=== PATIENT | female | born 1970 | race African-American/Black ===

== ENCOUNTER 2021-11-10 18:10 | Inpatient (IN) | payer OTHER, SELFPAY ==
[2021-11-10] VITALS (9 sets, daily range): BP systolic 130–158; BP diastolic 76–103; PULSE 91–103; RESP 24–28; TEMP 37.2–38; O2SAT 78–97; BMI 57.1; BMI 55.3
--- NOTE | ~2021-11-10 | CT_ITS ---
EXAMINATION: CT ANGIOGRAM OF THE CHEST WITH AND WITHOUT CONTRAST (CT PULMONARY ANGIOGRAM FOR PE) CLINICAL INFORMATION: Reason for Exam COVID + hypoxia pain r/o PE COMPARISON: No similar priors. TECHNIQUE: Prior to contrast administration, noncontrast localization images were obtained. Subsequently, multidetector volumetric imaging was performed from the thoracic inlet to below the diaphragms following the administration of 100 mL Omnipaque 350 intravenous contrast. No contrast reaction reported Sagittal, coronal, and MIP oblique sagittal reformatted images were obtained on the CT workstation, uploaded to PACS, and reviewed. This CT examination was performed using dose optimization techniques as appropriate, variously including the following: *Automated exposure control *Adjustment of mA and/or kV according to patient size (this includes techniques or standardized protocols for targeted exams where dose is matched to indication/reason for exam; i.e. extremities or head) *Use of iterative reconstruction technique Total exam dose-length product 545 mGy-cm FINDINGS: QUALITY OF STUDY/CONTRAST BOLUS: Suboptimal. PULMONARY ARTERIES: Evaluation of segmental and subsegmental branches is essentially nondiagnostic due to noise generated by patient body habitus, motion and overlying airspace opacities. No central pulmonary emboli. THORACIC AORTA: No aneurysm or dissection. LUNG: Extensive multifocal airspace opacities limiting evaluation of pulmonary nodules or underlying masses. The central airways are patent. PLEURA: No significant pleural effusion. No pneumothorax. MEDIASTINUM: Normal heart size. No pericardial effusion. No evidence of septal bowing or right heart strain. Mediastinal and hilar lymphadenopathy, for example a right lower pretracheal lymph node measuring 1 cm in short axis (5:18). Asymmetrically enlarged and heterogeneous right lobe of the thyroid. CHEST WALL/AXILLA: A few prominent bilateral axillary lymph nodes are indeterminate. There is no lymphadenopathy by size criteria. OSSEOUS STRUCTURES: No acute or suspicious osseous abnormality. Thoracic spondylosis. UPPER ABDOMEN: Unremarkable. No reflux of contrast into the hepatic veins to suggest elevated right heart pressures. CT/CT angio chest PE protocol IMPRESSION: No central pulmonary emboli. As above, evaluation of segmental and subsegmental branches is suboptimal. Extensive multifocal airspace opacities concerning for a severe atypical infection, such as COVID pneumonia. Mediastinal and hilar lymphadenopathy is likely reactive in nature. Enlarged heterogeneous right lobe of the thyroid for which correlation with a nonemergent thyroid ultrasound is recommended. VTE: negative
--- NOTE | ~2021-11-10 | XR_ITS ---
EXAMINATION: XR CHEST CLINICAL INFORMATION: Dyspnea. COMPARISON: None TECHNIQUE: Frontal portable view of the chest was obtained. 7:42 PM FINDINGS: Extensive multifocal bilateral airspace disease. No large pleural effusion. No pneumothorax. Heart size normal. XR/XR chest 1V IMPRESSION: Extensive multifocal bilateral airspace disease. Infectious/inflammatory versus cardiogenic, pulmonary edema, etiology.
--- NOTE | 2021-11-10 18:14 | ECG_ITS ---
Test Reason : DYSPENA Blood Pressure : / mmHG Vent. Rate : 099 BPM Atrial Rate : 099 BPM P-R Int : 172 ms QRS Dur : 102 ms QT Int : 348 ms P-R-T Axes : 043 011 063 degrees QTc Int : 446 ms Normal sinus rhythm Minimal voltage criteria for LVH, may be normal variant ( Mclean product ) Borderline ECG No previous ECGs available Referred By: Vicenta Carbone Electronically Signed By:MISTY WATSON
[2021-11-10] MEDS: Albuterol Sulfate (0.083%) 2.5 MG/3 ML VIAL.NEB 5 MG INHALE (18:28)
--- NOTE | 2021-11-10 18:34 | ED_ITS ---
HPI - SOB/Dyspnea General Chief Complaint: Dyspnea Stated Complaint: sob Time Seen by Provider: 11/10/21 18:11 Source: patient and EMS Mode of arrival: EMS Limitations: no limitations History of Present Illness HPI Narrative: 51 yo female hx of obesity, asthma, DM, not vaccinated notes she was exposed to COVID by her son noted symptoms started 10/31 into 11/01 she tested positive at home 11/02 she was doing okay until her breathing became more labored this Wednesday. She went to get Mab today and they found her in resp distress with saturations at 78%. Given neb with EMS good response up to 94% on 4L NC. Patient desaturates down to upper 80s off O2. She had productive yellow blood tinged sputum on arrival in ED - first bout seeing blood just now. Patient has not been getting any treatments at home. MD elicited complaint: shortness of breath, cough and asthma attack Pertinent past history: asthma and diabetes Onset (ago): day(s) (4) Context: recent illness (COVID + 11/02 home test unvaccinated) Timing: progressively worsening Severity: severe Exacerbating factors: exertion and coughing Relieving factors: oxygen, rest and bronchodilators Known history of: asthma Associated symptoms: fever, cough, wheezing, sputum production, hemoptysis and chest congestion Treatment prior to arrival: oxygen and bronchodilator Related Data Home Medications Medication Instructions Recorded Confirmed albuterol sulfate 90 1 inh INHALATION Q4H PRN 11/10/21 11/10/21 mcg/actuation aerosol inhaler (Ventolin HFA) cholecalciferol (vitamin D3) 50 1 cap PO DAILY 11/10/21 11/10/21 mcg (2,000 unit) capsule ibuprofen 800 mg tablet 1 tab PO TID PRN 11/10/21 11/10/21 metformin 1,000 mg tablet 1 tab PO BID 11/10/21 11/10/21 Allergies Allergy/AdvReac Type Severity Reaction Status Date / Time No Known Allergies Allergy Verified 11/10/21 18:13 Review of Systems Verdana 4l Review of Systems: Verdana 4d Verdana 4d Constitutional : pos Fever, pos Chills ENT/Mouth : No Hoarseness, No sore throat, No Rhinorrhea Eyes: No Redness, No Discharge, No Vision Changes Cardiovascular : pos Chest Pain, positive SOB, positive Dyspnea on Exertion, no Edema RespiratoryRespiratory : positive Cough, pos Sputum, positive Wheezing, Gastrointestinal : pos Nausea, No Vomiting, No Diarrhea, No abdominal Pain Genitourinary : No Dysuria, No Hematuria Musculoskeletal : No joint pain, pos Myalgias Skin : No rash Neuro : No Weakness, No Numbness, No Headache Psych : No anxiety, depression Heme/Lymph: No Bruising, No Bleeding Endocrine : No Polyuria, No Polydipsia All other systems reviewed and are negative PMFSH Past Medical History Attestation statement: The following information was validated with the patient. Medical History (Updated 11/10/21 @ 20:05 by Vicenta Carbone DO) Asthma Diabetes Lymphedema Obesity PRISCILLA (obstructive sleep apnea) Social History Social History (Updated 11/10/21 @ 18:35 by Vicenta Carbone DO) Patient Tobacco Use Status: Former Tobacco user Advance Directives: No Physical Exam Verdana 4l Vital Signs: Verdana 4d Verdana 4d Vital Signs: Verdana 4d Verdana 4Bd Last Vital Signs Verdana 4d [employer] New 4d [employer] New 4d Temp 100.4 F 11/10/21 18:23 [employer] New 4d Pulse 103 H 11/10/21 19:19 [employer] New 4d Resp 28 H 11/10/21 19:19 BP 147/76 H 11/10/21 18:23 Pulse Ox 93 11/10/21 19:30 Oxygen Flow Rate 4 11/10/21 18:23 BMI result Body Mass Index 57.1 Appearance: Alert. Oriented X3. Mild acute distress. Eyes: Pupils equal, round and reactive to light. ENT: Pharynx normal. Coughed up yellow blood tinged sputum - has never happened until now Neck: short neck. Neck supple. CVS: Normal heart rate and rhythm. Pulses normal. Respiratory: Mild respiratory distress - retractions and tachypnea. Breath sounds diffuse wheezing insp and exp bases diminished throughout Abdomen: Soft and nontender. Obese Skin: Skin warm and dry. Normal skin color. Normal skin turgor. Extremities: chronic LLE edema states appears typical to her. No calf ttp Neuro: Oriented X 3. No motor deficit. No sensory deficit. Course Course Course Narrative: 88% post treatment no response to 6L NC will place on Zaidi 93% on 7L Zaidi will add on vancomycin given purulent bloody sputum, CTA pending ICU aware though currently not vented or on NIPPV stable sats on [place] ICU will admit overnight given her PRISCILLA use of NIPPV overnight and likelihood of decompensation - Dr. Saucedo and Nikita BUTLER aware MDM - SOB/Dyspnea MDM Narrative Medical decision making narrative: 51 yo female hx of obesity, asthma, DM, not vaccinated notes she was exposed to COVID by her son noted symptoms started 10/31 into 11/01 she tested positive at home 11/02 she was doing okay until her breathing became more labored this Wednesday. Went to [facility] center today found to be in hypoxic to 78% given neb en rou te with good effect - at this time will need labs, cultures, CXR likely CTA for PE. IV dexamethasone, albuterol 5mg. Patient will need admission for further management and workup. Lab Data Result diagrams: 11/10/21 19:07 11/10/21 19:07 Labs: Lab Results 11/10/21 11/10/21 11/10/21 Range/Units 18:14 19:07 19:07 WBC 7.3 (4.8-10.8) X10*3/uL RBC 4.36 (4.20-5.50) X10*6/uL Hgb 12.7 (12.0-16.0) g/dl Hct 38.9 (37.0-47.0) % MCV 89.2 (80.0-98.0) fL MCH 29.1 (27.0-33.0) pg MCHC 32.6 (31.0-35.0) g/dl RDW 14.6 (11.0-16.0) % Plt Count 263 (160-400) X10*3/uL MPV 9.6 (9.4-12.3) fL Immature Gran % (Auto) 0.4 (0.0-0.4) % Neut % (Auto) 74.8 H (45-73) % Lymph % (Auto) 21.8 (20-40) % [place] % (Auto) 2.5 (2-11) % Eos % (Auto) 0.1 (0-4) % Baso % (Auto) 0.4 (0-2) % Lymph # (Auto) 1.6 (1.2-4.9) X10*3/uL [place] # (Auto) 0.2 (0.1-1.2) X10*3/uL Eos # (Auto) 0.0 (0.0-0.4) X10*3/uL Baso # (Auto) 0.0 (0.0-0.2) X10*3/uL Abs Immat Gran (auto) 0.03 (0.00-0.03) X10*3/uL Absolute Neuts (auto) 5.5 (2.0-8.3) x10*3/uL Absolute Nucleated RBC 0.000 (0.0-0.012) X10*3/uL Nucleated RBC % (auto) 0.0 (0.0-0.2) /100WBC Smear Tech's Comments VERIFIED PT (9.9-13.0) SEC INR (0.9-1.1) D-Dimer High Sensitivty NG/ML VBG pH 7.44 H (7.32-7.43) VBG pCO2 37 mmHg VBG pO2 48 mmHg VBG HCO3 25 (22-26) mmol/L VBG O2 Saturation 75.0 % VBG Base Excess 2.1 mmol/L Sodium 142 (135-145) mmol/L Potassium 3.7 (3.3-5.1) mmol/L Chloride 104 (96-108) mmol/L Carbon Dioxide 27 (22-29) mmol/L Anion Gap 15 (12-20) BUN 7 L (9-16) mg/dL Creatinine 0.81 (0.5-1.4) mg/dL Estim Creat Clear Calc 119.5 Estimated GFR > 60 Random Glucose 237 H (60-115) mg/dL Lactic Acid (0.5-2.0) mmol/L Calcium 8.7 (8.4-10.2) mg/dL Magnesium 2.0 (1.6-2.6) mg/dL Ferritin (10-250) ng/mL Total Bilirubin 0.4 (0.0-1.0) mg/dL Direct Bilirubin 0.2 (0.0-0.5) mg/dL AST 55 H (5-31) U/L ALT 41 H (0-31) U/L Alkaline Phosphatase 95 (39-117) U/L Lactate Dehydrogenase 455 H (122-220) U/L Total Creatine Kinase 192 H (26-140) U/L Troponin I High Sens (<3.5-17.0) ng/L C-Reactive Protein 20.09 H (< or = 0.50) mg/dL Total Protein 7.0 (6.5-8.0) g/dL Albumin 3.9 (3.5-5.0) g/dL Procalcitonin ng/mL 11/10/21 11/10/21 11/10/21 Range/Units 19:07 19:07 19:07 WBC (4.8-10.8) X10*3/uL RBC (4.20-5.50) X10*6/uL Hgb (12.0-16.0) g/dl Hct (37.0-47.0) % MCV (80.0-98.0) fL MCH (27.0-33.0) pg MCHC (31.0-35.0) g/dl RDW (11.0-16.0) % Plt Count (160-400) X10*3/uL MPV (9.4-12.3) fL Immature Gran % (Auto) (0.0-0.4) % Neut % (Auto) (45-73) % Lymph % (Auto) (20-40) % [place] % (Auto) (2-11) % Eos % (Auto) (0-4) % Baso % (Auto) (0-2) % Lymph # (Auto) (1.2-4.9) X10*3/uL [place] # (Auto) (0.1-1.2) X10*3/uL Eos # (Auto) (0.0-0.4) X10*3/uL Baso # (Auto) (0.0-0.2) X10*3/uL Abs Immat Gran (auto) (0.00-0.03) X10*3/uL Absolute Neuts (auto) (2.0-8.3) x10*3/uL Absolute Nucleated RBC (0.0-0.012) X10*3/uL Nucleated RBC % (auto) (0.0-0.2) /100WBC Smear Tech's Comments PT 13.7 H (9.9-13.0) SEC INR 1.2 H (0.9-1.1) D-Dimer High Sensitivty NG/ML VBG pH (7.32-7.43) VBG pCO2 mmHg VBG pO2 mmHg VBG HCO3 (22-26) mmol/L VBG O2 Saturation % VBG Base Excess mmol/L Sodium (135-145) mmol/L Potassium (3.3-5.1) mmol/L Chloride (96-108) mmol/L Carbon Dioxide (22-29) mmol/L Anion Gap (12-20) BUN (9-16) mg/dL Creatinine (0.5-1.4) mg/dL Estim Creat Clear Calc Estimated GFR Random Glucose (60-115) mg/dL Lactic Acid 1.5 (0.5-2.0) mmol/L Calcium (8.4-10.2) mg/dL Magnesium (1.6-2.6) mg/dL Ferritin 355 H (10-250) ng/mL Total Bilirubin (0.0-1.0) mg/dL Direct Bilirubin (0.0-0.5) mg/dL AST (5-31) U/L ALT (0-31) U/L Alkaline Phosphatase (39-117) U/L Lactate Dehydrogenase (122-220) U/L Total Creatine Kinase (26-140) U/L Troponin I High Sens (<3.5-17.0) ng/L C-Reactive Protein (< or = 0.50) mg/dL Total Protein (6.5-8.0) g/dL Albumin (3.5-5.0) g/dL Procalcitonin ng/mL 11/10/21 11/10/21 11/10/21 Range/Units 19:07 19:07 19:08 WBC (4.8-10.8) X10*3/uL RBC (4.20-5.50) X10*6/uL Hgb (12.0-16.0) g/dl Hct (37.0-47.0) % MCV (80.0-98.0) fL MCH (27.0-33.0) pg MCHC (31.0-35.0) g/dl RDW (11.0-16.0) % Plt Count (160-400) X10*3/uL MPV (9.4-12.3) fL Immature Gran % (Auto) (0.0-0.4) % Neut % (Auto) (45-73) % Lymph % (Auto) (20-40) % [place] % (Auto) (2-11) % Eos % (Auto) (0-4) % Baso % (Auto) (0-2) % Lymph # (Auto) (1.2-4.9) X10*3/uL [place] # (Auto) (0.1-1.2) X10*3/uL Eos # (Auto) (0.0-0.4) X10*3/uL Baso # (Auto) (0.0-0.2) X10*3/uL Abs Immat Gran (auto) (0.00-0.03) X10*3/uL Absolute Neuts (auto) (2.0-8.3) x10*3/uL Absolute Nucleated RBC (0.0-0.012) X10*3/uL Nucleated RBC % (auto) (0.0-0.2) /100WBC Smear Tech's Comments PT (9.9-13.0) SEC INR (0.9-1.1) D-Dimer High Sensitivty 506 NG/ML VBG pH (7.32-7.43) VBG pCO2 mmHg VBG pO2 mmHg VBG HCO3 (22-26) mmol/L VBG O2 Saturation % VBG Base Excess mmol/L Sodium (135-145) mmol/L Potassium (3.3-5.1) mmol/L Chloride (96-108) mmol/L Carbon Dioxide (22-29) mmol/L Anion Gap (12-20) BUN (9-16) mg/dL Creatinine (0.5-1.4) mg/dL Estim Creat Clear Calc Estimated GFR Random Glucose (60-115) mg/dL Lactic Acid (0.5-2.0) mmol/L Calcium (8.4-10.2) mg/dL Magnesium (1.6-2.6) mg/dL Ferritin (10-250) ng/mL Total Bilirubin (0.0-1.0) mg/dL Direct Bilirubin (0.0-0.5) mg/dL AST (5-31) U/L ALT (0-31) U/L Alkaline Phosphatase (39-117) U/L Lactate Dehydrogenase (122-220) U/L Total Creatine Kinase (26-140) U/L Troponin I High Sens 4.9 (<3.5-17.0) ng/L C-Reactive Protein (< or = 0.50) mg/dL Total Protein (6.5-8.0) g/dL Albumin (3.5-5.0) g/dL Procalcitonin 0.13 ng/mL ECG Data Attestation: I personally reviewed and interpreted this ECG as follows: ECG interpretation date: 11/10/21 ECG interpretation time: 19:38 Interpretation: Rate: 99 Rhythm: NSR [place]: normal Normal P waves. Normal CLAIRE. Normal QRS complex. ST T wave : no [place], normal qTC: normal prior studies: no acute ischemia The study has been interpreted contemporaneously by me. . Critical Care Time Critical Care Time Critical Care Time: Yes Total Critical Care Time: 60 Attestation: hypoxia correction, albuterol 5mg, reassessments, admission to hospital I attest to this time spent taking care of the patient Discharge Plan Discharge Clinical Impression: Pneumonia due to 2019-nCoV, Hypoxia Respiratory failure, acute Qualifiers: Respiratory failure complication: hypoxia Qualified Code(s): J96.01 - Acute respiratory failure with hypoxia Patient Disposition: Admitted As Inpatient
[2021-11-10 19:15] LABS: Basophils Percent Auto 0.4 % (0-2); Eosinophils Percent Auto 0.1 % (0-4); Hematocrit 38.9 % (37.0-47.0); Hemoglobin 12.7 g/dl (12.0-16.0); Imm Gran Abs Auto 0.03 X10*3/uL (0.00-0.03); Imm Gran Pct Auto 0.4 % (0.0-0.4); Lymphocytes Absolute Auto 1.6 X10*3/uL (1.2-4.9); Lymphocytes Percent Auto 21.8 % (20-40); MANUAL DIFF FLAG SCAN; Mean Corpuscular HGB Conc 32.6 g/dl (31.0-35.0); Mean Corpuscular Hemoglobin 29.1 pg (27.0-33.0); Mean Corpuscular Volume 89.2 fL (80.0-98.0); Mean Platelet Volume 9.6 fL (9.4-12.3); Monocytes Absolute Auto 0.2 X10*3/uL (0.1-1.2); Monocytes Percent Auto 2.5 % (2-11); Neutrophils Absolute Auto 5.5 x10*3/uL (2.0-8.3); Neutrophils Percent Auto 74.8 % (45-73); Platelet Count 263 X10*3/uL (160-400); Red Blood Count 4.36 X10*6/uL (4.20-5.50); Red Cell Distribution Width 14.6 % (11.0-16.0); SCAN SMEAR FLAG 1; White Blood Count 7.3 X10*3/uL (4.8-10.8)
[2021-11-10] MEDS: Acetaminophen 325 MG TABLET 650 MG PO (19:15)
[2021-11-10] MEDS: dexAMETHasone sod phosphate 4 MG/ML VIAL 6 MG IVPUSH (19:16)
[2021-11-10 19:20] LABS: INTERNATIONAL NORM RATIO 1.2 (0.9-1.1); Prothrombin Time 13.7 SEC (9.9-13.0)
[2021-11-10 19:28] LABS: Venous Blood Gas Refer to POC result
[2021-11-10 19:35] LABS: Lactic Acid 1.5 mmol/L (0.5-2.0)
[2021-11-10 19:39] LABS: Alanine Aminotransferase 41 U/L (0-31); Albumin Level 3.9 g/dL (3.5-5.0); Alkaline Phosphatase 95 U/L (39-117); Anion Gap 15 (12-20); Aspartate Amino Transferase 55 U/L (5-31); Bilirubin Direct 0.2 mg/dL (0.0-0.5); Bilirubin Total 0.4 mg/dL (0.0-1.0); Blood Urea Nitrogen 7 mg/dL (9-16); C Reactive Protein 20.09 mg/dL (< or = 0.50); Calcium 8.7 mg/dL (8.4-10.2); Carbon Dioxide 27 mmol/L (22-29); Chloride 104 mmol/L (96-108); Creatinine Clr Calc Pharmacy 119.5; Estimated Glomerular Filt Rate > 60; Glucose Random 237 mg/dL (60-115); Lactate Dehydrogenase 455 U/L (122-220); Potassium 3.7 mmol/L (3.3-5.1); Sodium 142 mmol/L (135-145)
[2021-11-10 19:40] LABS: D Dimer High Sensitivity 506 NG/ML
[2021-11-10 19:42] LABS: Troponin-I High Sensitivity 4.9 ng/L (<3.5-17.0)
[2021-11-10 19:55] LABS: VBG Base Excess 2.1 mmol/L; VBG pCO2 37 mmHg; VBG pH 7.44 (7.32-7.43); VBG pO2 48 mmHg
[2021-11-10 19:56] LABS: Procalcitonin 0.13 ng/mL
[2021-11-10 19:56] LABS: VBG HCO3 25 mmol/L (22-26)
--- NOTE | 2021-11-10 20:03 | PHA.MEDREC ---
Pharmacy Consult ? Medication Reconciliation Pharmacy has completed the medication reconciliation.
[2021-11-10 20:19] LABS: Ferritin 355 ng/mL (10-250)
[2021-11-10 20:24] LABS: SLIDE REVIEW VERIFIED
[2021-11-10] MEDS: iohexoL 350 MG/ML 100 ML INFUS..BTL IV (20:56)
[2021-11-10 21:07] LABS: B Type Natriuretic Peptide 10 pg/mL (<100)
[2021-11-10] MEDS: cefTRIAXone sodium 1 GM in 0.9 % Sodium Chloride 50 ML IV (21:08)
[2021-11-10] MEDS: Azithromycin 500 MG in 0.9 % Sodium Chloride 250 ML 125 MG IV (21:11)
--- NOTE | 2021-11-10 21:11 | PM.CCHP ---
History of Present Illness Date of Service: 11/10/21 Attending physician on admission: Jennifer Saucedo Chief Complaint: Acute Hypoxic Respiratory Failure Patient is a 51-year-old female with a past medical history of morbid obesity, DM2, asthma, chronic LLE lymphedema, not vaccinated for Covid, who states she was exposed to COVID by her son after he traveled to [place]. She states her symptoms started on October 31, she test positive at home in November 02. She states she uses BiPAP at night at home and has been using it for the last 10 days. She states she became more sick 3 days ago, noting fevers with a T-max of 102.6 degrees, some nausea and vomiting and an increase in shortness of breath beyond her baseline. Earlier today, she went to get a monoclonal antibody infusion and they found her in respiratory distress with O2 sat of 78%. EMS gave her a nebulizer treatment with fair success, she arrived in the ED satting at 94% on 4 L nasal cannula. During my exam, the patient was on 7 L Zaidi NC satting in the low 90's, breathing easily, able to answer my questions, asking for water and a blanket, not in distress. Vitals in the emergency department were notable for a temp of 100.4 degrees F, heart rate 103, respiratory rate 28, blood pressure 147/76. Labs in the ED were remarkable for glucose 237, AST 55, ALT 41, LDH 455, CK 192, CRP 20.09, ferritin 355, D-dimer 506, procalcitonin 0.13; VBG 7.44/37/48/25/75/2.1 While in the ED patient was given albuterol 5 mg, IV dexamethasone, 500 mg azithromycin, 1 g ceftriaxone and Tylenol. CTA results: CT/CT angio chest PE protocol IMPRESSION: No central pulmonary emboli. As above, evaluation of segmental and subsegmental branches is suboptimal. ? Extensive multifocal airspace opacities concerning for a severe atypical infection, such as COVID pneumonia. ? Mediastinal and hilar lymphadenopathy is likely reactive in nature. ? Enlarged heterogeneous right lobe of the thyroid for which correlation with a nonemergent thyroid ultrasound is recommended. ? VTE: negative Review of Systems Review of Systems: Yes all other systems are reviewed and are negative PMFSH Past Medical History Medical History Asthma Diabetes Lymphedema Obesity PRISCILLA (obstructive sleep apnea) Social History Social History Household Members: Children Housing: Apartment Do you presently have visiting nurse or other home services: Yes Patient Tobacco Use Status: Former Tobacco user e-Cigarette/Vaping Use: Former Use Use of substances other than those prescribed or required for medical reasons: No Have you been hit, kicked, punched, or otherwise hurt by someone within the past year? If so, by whom?: No Do you feel safe in your current relationship?: No Current Relationship Is there a partner from a previous relationship who is making you feel unsafe now?: No Are you made to feel afraid or neglected: No Advance Directives: No Do you have thoughts of harming others: None Do you have a plan to hurt others: No Plan Recently lost weight without trying: No Nutrition Risks: No Nutritional Risk Patient : No : No Poor oral hygiene: No Meds Allergies Allergy/AdvReac Type Severity Reaction Status Date / Time No Known Allergies Allergy Verified 11/10/21 18:13 Active Medications: Current Medications Albuterol Sulfate (Albuterol Sulfate (0.083%) 2.5 Mg/3 Ml Vial.Neb) 2.5 mg INHALE Q4H PRN PRN Reason: sob Albuterol/Ipratropium (Albuterol/Iprat 2.5/0.5mg 3 Ml Ampul.Neb) 3 ml INHALE Q2H PRN PRN Reason: sob Dexamethasone Sodium Phosphate (Dexamethasone Sod Phosphate 4 Mg/Ml Vial) 6 mg IVPUSH ONCE BINA Stop: 11/19/21 21:16 Dextrose (Dextrose 50 % 25 Gm/50 Ml Syringe) 25 gm IVPUSH Q30M PRN PRN Reason: Nursing Actions in Insulin Infusion Protocol Fluvoxamine Maleate (Fluvoxamine Maleate 50 Mg Tablet) 100 mg PO Q12H BINA Heparin Sodium (Porcine) (Heparin Sodium,Porcine 5,000 Unit/Ml Vial) 5,000 unit SUBCUT Q12H BINA Azithromycin 500 mg/ Sodium (Chloride) 250 mls @ 125 mls/hr IV ONCE ONE Stop: 11/10/21 21:59 Vancomycin HCl 1,500 mg/ (Sodium Chloride) 500 mls @ 333.333 mls/hr IV ONCE ONE Stop: 11/10/21 21:48 Insulin Human Regular (Myxredlin) 100 unit in 100 mls @ 0 mls/hr IVCONT .Q0M [facility]; Protocol Vancomycin HCl 750 mg/ Sodium (Chloride) 265 mls @ 265 mls/hr IV Q24H [facility] Pharmacy Consult (Consult Rx Perform Med Rec) 1 each MISCELLANE ONCE PRN PRN Reason: Consult order Pharmacy Consult (Consult Rx Vancomycin Dosing) 1 each MISCELLANE DAILY PRN PRN Reason: Consult order Home Medications Medication Instructions Recorded Confirmed Last Taken Type albuterol sulfate 90 mcg/actuation 1 inh INHALATION Q4H PRN 11/10/21 11/10/21 Unknown History aerosol inhaler (Ventolin HFA) cholecalciferol (vitamin D3) 50 1 cap PO DAILY 11/10/21 11/10/21 Unknown History mcg (2,000 unit) capsule ibuprofen 800 mg tablet 1 tab PO TID PRN 11/10/21 11/10/21 Unknown History metformin 1,000 mg tablet 1 tab PO BID 11/10/21 11/10/21 Unknown History Physical Exam Vital Signs: Vital Signs: Last Vital Signs Temp 100.4 F 11/10/21 18:23 Pulse 93 11/10/21 21:07 Resp 28 H 11/10/21 21:07 BP 147/76 H 11/10/21 18:23 Pulse Ox 93 11/10/21 21:07 Oxygen Flow Rate 4 11/10/21 18:23 BMI result Body Mass Index 57.1 Const: General: cooperative, comfortable, no acute distress, alert, awake and tired appearing Nutritional Appearance: obese morbidly obese Orientation/consciousness: patient oriented x3 HENMT: Head: Yes normal to inspection, Yes No palpable skull fracture present, Yes normocephalic and Yes atraumatic Ears: hearing grossly normal bilaterally General nose exam: Normal external nose present Face and sinus: Yes normal facial exam Eyes: General: appearance normal, both eyes and all related structures Pupils: Equal, round and reactive pupils present Neck: Neck: Yes normal visual inspection, Yes full ROM, Yes trachea midline and Yes supple Resp: Effort & Inspection: normal respiratory effort, able to speak in complete sentences and Actively coughing Auscultation: wheezes expiratory wheezes, inspiratory wheezes, scattered wheezes and throughout and diminished lung sounds diffuse Cardio: Jugular venous distension: no JVD Rate: regular rate Rhythm: regular rhythm Heart sounds: normal S1 and S2 GI: Inspection: Yes obesity Palpation (GI): Soft to palpation and nontender Skin: General skin exam: no rashes or lesions noted Neuro: General: patient oriented x3 Cranial nerves: Yes Equal, round and reactive pupils present Results Labs CBC and Chem 7: 11/10/21 19:07 11/10/21 19:07 Labs: Laboratory Results - last 24 hr 11/10/21 11/10/21 11/10/21 18:14 19:07 19:07 MCV 89.2 MCH 29.1 MCHC 32.6 RDW 14.6 Plt Count 263 MPV 9.6 Immature Gran % (Auto) 0.4 Neut % (Auto) 74.8 H Lymph % (Auto) 21.8 [place] % (Auto) 2.5 Eos % (Auto) 0.1 Baso % (Auto) 0.4 Lymph # (Auto) 1.6 [place] # (Auto) 0.2 Eos # (Auto) 0.0 Baso # (Auto) 0.0 Abs Immat Gran (auto) 0.03 Absolute Neuts (auto) 5.5 Absolute Nucleated RBC 0.000 Nucleated RBC % (auto) 0.0 Smear Tech's Comments VERIFIED PT INR D-Dimer High Sensitivty VBG pH 7.44 H VBG pCO2 37 VBG pO2 48 VBG HCO3 25 VBG O2 Saturation 75.0 VBG Base Excess 2.1 Anion Gap 15 Estim Creat Clear Calc 119.5 Estimated GFR > 60 Random Glucose 237 H Lactic Acid Calcium 8.7 Magnesium 2.0 Ferritin Total Bilirubin 0.4 Direct Bilirubin 0.2 AST 55 H ALT 41 H Alkaline Phosphatase 95 Lactate Dehydrogenase 455 H Total Creatine Kinase 192 H Troponin I High Sens C-Reactive Protein 20.09 H B-Natriuretic Peptide Total Protein 7.0 Albumin 3.9 Procalcitonin 11/10/21 11/10/21 11/10/21 19:07 19:07 19:07 MCV MCH MCHC RDW Plt Count MPV Immature Gran % (Auto) Neut % (Auto) Lymph % (Auto) [place] % (Auto) Eos % (Auto) Baso % (Auto) Lymph # (Auto) [place] # (Auto) Eos # (Auto) Baso # (Auto) Abs Immat Gran (auto) Absolute Neuts (auto) Absolute Nucleated RBC Nucleated RBC % (auto) Smear Tech's Comments PT 13.7 H INR 1.2 H D-Dimer High Sensitivty VBG pH VBG pCO2 VBG pO2 VBG HCO3 VBG O2 Saturation VBG Base Excess Anion Gap Estim Creat Clear Calc Estimated GFR Random Glucose Lactic Acid 1.5 Calcium Magnesium Ferritin 355 H Total Bilirubin Direct Bilirubin AST ALT Alkaline Phosphatase Lactate Dehydrogenase Total Creatine Kinase Troponin I High Sens C-Reactive Protein B-Natriuretic Peptide Total Protein Albumin Procalcitonin 11/10/21 11/10/21 11/10/21 19:07 19:07 19:08 MCV MCH MCHC RDW Plt Count MPV Immature Gran % (Auto) Neut % (Auto) Lymph % (Auto) [place] % (Auto) Eos % (Auto) Baso % (Auto) Lymph # (Auto) [place] # (Auto) Eos # (Auto) Baso # (Auto) Abs Immat Gran (auto) Absolute Neuts (auto) Absolute Nucleated RBC Nucleated RBC % (auto) Smear Tech's Comments PT INR D-Dimer High Sensitivty 506 VBG pH VBG pCO2 VBG pO2 VBG HCO3 VBG O2 Saturation VBG Base Excess Anion Gap Estim Creat Clear Calc Estimated GFR Random Glucose Lactic Acid Calcium Magnesium Ferritin Total Bilirubin Direct Bilirubin AST ALT Alkaline Phosphatase Lactate Dehydrogenase Total Creatine Kinase Troponin I High Sens 4.9 C-Reactive Protein B-Natriuretic Peptide 10 Total Protein Albumin Procalcitonin 0.13 ECG Attestation: I personally reviewed and interpreted this ECG as follows: ECG interpretation date: 11/10/21 ECG interpretation time: 22:14 Prior ECG tracings: not available for review Interpretation: NSR 99BPM, no ST or T wave changes. Imaging Radiologist's Impressions: Impressions Chest X-Ray 11/10/21 19:48 IMPRESSION: Extensive multifocal bilateral airspace disease. Infectious/inflammatory versus cardiogenic, pulmonary edema, etiology. Assessment and Plan (1) Pneumonia due to 2019-nCoV: Status: Acute ID consult appreciated for possible use of Remdesivir and/or baricintinib pt is on day 10 of symptoms but due to her medical history, could be helpful. Will place on BiPap overnight and monitor pt status and VBG's. Decadron ordered. discussed with patient to prone and lay on the right side and left side as much as possible (2) PRISCILLA treated with BiPAP: Status: Acute (3) Obesity, morbid, BMI 50 or higher: Status: Acute (4) Acute respiratory failure with hypoxia: Status: Acute discussed with patient to prone and lay on the right side and left side as much as possible (5) Diabetes type 2, uncontrolled: Status: Acute QIDACHS insulin and POC's Plan see above. Admission, assessment and plan discussed with Dr Saucedo.
--- NOTE | 2021-11-10 21:29 | PHA.PROG ---
Admission Date/Time: November 10, 2021 20:59 Indication: other possible resp Weight in k.2 kg Adjusted body weight in K.3 [place] body weight in K.7 Obesity Dosing Indication % IBW: Serum Creatinine - Last 168 Hours 11/10/21 19:07 Creatinine 0.81 Estimated CrCl and GFR - Last 168 Hours 11/10/21 19:07 Estim Creat Clear Calc 119.5 Estimated GFR > 60 Vancomycin Loading Dose: 2000 Current Vancomycin Dosing Regimen: 1gm q12 Vancomycin Monitoring using AUC goal of 400 - 600 range with trough as surrogate marker: auc 457; trough 12.7 Date and Time for next Vancomycin Level to be drawn: 11/11 @2100 Pharmacist Comments on Vancomycin Plan: trough after 2 doses to assess safety. using obese model Vancomycin dosing will take advantage of [employer] as a clinical decision support tool that uses Bayesian modeling to calculate individual patient's pharmacokinetic parameters and forecast the patient's drug concentration time course with the target goal AUC 24 range of 400 - 600 mg/L/hr.
[2021-11-10 22:16] LABS: Glucose, Whole Blood 225 mg/dL (60-115)
--- NOTE | 2021-11-10 22:24 | PC.NURSE ---
call placed to pharmacy for Luvox for pt
[2021-11-10] MEDS: Heparin Sodium,Porcine 5,000 UNIT/ML VIAL 5000 UNIT SUBCUT (22:33)
[2021-11-11] VITALS (18 sets, daily range): BP systolic 128–162; BP diastolic 71–98; PULSE 75–94; RESP 16–37; TEMP 36.2–37.4; O2SAT 82–98; BMI 55.5
[2021-11-11 00:15] LABS: Glucose, Whole Blood 255 mg/dL (60-115)
[2021-11-11] MEDS: Insulin Lispro 100 UNIT/ML 3 ML VIAL SUBCUT ×5 (01:04→21:40)
[2021-11-11 04:53] LABS: VBG Base Excess 1.8 mmol/L; VBG HCO3 26 mmol/L (22-26); VBG pCO2 41 mmHg; VBG pH 7.41 (7.32-7.43); VBG pO2 53 mmHg
[2021-11-11 05:20] LABS: Hematocrit 36.1 % (37.0-47.0); Hemoglobin 11.7 g/dl (12.0-16.0); Mean Corpuscular HGB Conc 32.4 g/dl (31.0-35.0); Mean Corpuscular Volume 89.4 fL (80.0-98.0); Mean Platelet Volume 9.8 fL (9.4-12.3); Platelet Count 274 X10*3/uL (160-400); Red Blood Count 4.04 X10*6/uL (4.20-5.50); Red Cell Distribution Width 14.6 % (11.0-16.0); Venous Blood Gas Refer to POC result; White Blood Count 5.9 X10*3/uL (4.8-10.8)
[2021-11-11 05:36] LABS: D Dimer High Sensitivity 488 NG/ML
[2021-11-11 05:41] LABS: Alanine Aminotransferase 41 U/L (0-31); Albumin Level 3.6 g/dL (3.5-5.0); Alkaline Phosphatase 93 U/L (39-117); Anion Gap 13 (12-20); Aspartate Amino Transferase 57 U/L (5-31); Bilirubin Direct 0.2 mg/dL (0.0-0.5); Bilirubin Total 0.3 mg/dL (0.0-1.0); Blood Urea Nitrogen 6 mg/dL (9-16); C Reactive Protein 21.07 mg/dL (< or = 0.50); Calcium 8.4 mg/dL (8.4-10.2); Carbon Dioxide 27 mmol/L (22-29); Chloride 105 mmol/L (96-108); Creatinine Clr Calc Pharmacy 123.3; Estimated Glomerular Filt Rate > 60; Glucose Random 254 mg/dL (60-115); Magnesium 2.1 mg/dL (1.6-2.6); Phosphorus 2.9 mg/dL (2.7-4.5); Potassium 4.1 mmol/L (3.3-5.1); Sodium 141 mmol/L (135-145); Total Protein 6.5 g/dL (6.5-8.0)
[2021-11-11 05:55] LABS: Band Neutrophils Percent 5 % (3-5); Lymphocytes Absolute Manual 0.5 X10*3/uL (1.2-4.9); Lymphocytes Percent Manual 8 % (20-40); Monocytes Absolute Manual 0.1 X10*3/uL (0.1-1.2); Monocytes Percent Manual 1 % (2-11)
[2021-11-11 05:56] LABS: Neutrophils Absolute Manual 5.3 X10*3/uL (2.0-8.3); Neutrophils Percent Manual 85 % (45-73)
[2021-11-11 05:57] LABS: Metamyelocytes Absolute 0.1 X10*3/uL; Metamyelocytes Percent 1 %
[2021-11-11 06:02] LABS: Platelet Estimate NORMAL (NORMAL); Platelet Morphology Comment NORMAL; RBC Morphology NORMAL
[2021-11-11 06:06] LABS: Ferritin 311 ng/mL (10-250)
[2021-11-11 07:26] LABS: Glucose, Whole Blood 221 mg/dL (60-115)
[2021-11-11] MEDS: dexAMETHasone sod phosphate 4 MG/ML VIAL 6 MG IVPUSH (08:48)
[2021-11-11] MEDS: Heparin Sodium,Porcine 5,000 UNIT/ML VIAL 5000 UNIT SUBCUT ×2 (08:48→21:40)
[2021-11-11] MEDS: fluvoxaMINE Maleate 50 MG TABLET 100 MG PO (08:49)
--- NOTE | 2021-11-11 10:53 | P.PNCC_ITS ---
Subjective Subjective Date of Service: 11/11/21 Interval History: 51-year-old type 2 diabetic morbidly obese female with history of asthma and obstructive sleep apnea on nocturnal BiPAP at home is under vaccinated had significant exposure developed low-grade fever and shortness of breath symptomatic since the making this now about 11 days and tested positive on the for COVID and and admitted through the emergency room with positive CT scan for mean of scattered bilateral ground-glass infiltrates including significant subpleural infiltrates who had a low room air oxygen saturation of 78% was rejected obviously for monoclonal antibodies sent to the emergency room admitted and now receiving Decadron and also empirically fluvoxamine and at this point is on nasal high-flow at 55 L and intermittent use of non-rebreather but respiratory rate is in the low teens comfortable no significant respiratory work week chose to bring her because of risk factors to the ICU last night and apparently has remained stable on her nocturnal BiPAP settings of 10/5 and currently is on a diet using the above noninvasive therapy and at this point conceivably be observed in the intermediate care unit and of course in if need be for for intubation can be brought back down but thus far appear stable Critical Care Time (minutes): 35 Physical Exam Verdana 4l Vital Signs: Verdana 4d Verdana 4d Vital Signs: Verdana 4d Verdana 4Bd Last Vital Signs Verdana 4d Tuber Helper New 4d Tuber Helper New 4d Temp 97.2 F 11/11/21 08:00 Tuber Helper New 4d Pulse 82 11/11/21 08:00 Tuber Helper New 4d Resp 22 H 11/11/21 08:23 BP 146/89 H 11/11/21 08:00 Pulse Ox 98 11/11/21 08:00 Oxygen Flow Rate 15 11/10/21 20:59 BMI result Body Mass Index 55.5 vital signs stable in normal sinus rhythm heart rate 84 oxygen sat 95% blood pressure 126/80 awake alert and nonfocal neurologically cardiovascular good bilateral carotid upstrokes no neck vein distension no gallop s no significant accessory muscle use and no diaphragmatic effort abdomen benign Objective Data Labs CBC & Chem 7: 11/11/21 04:45 11/11/21 04:45 Labs: Laboratory Results - last 24 hr 11/10/21 11/10/21 11/10/21 18:14 19:07 19:07 WBC 7.3 RBC 4.36 Hgb 12.7 Hct 38.9 MCV 89.2 MCH 29.1 MCHC 32.6 RDW 14.6 Plt Count 263 MPV 9.6 Immature Gran % (Auto) 0.4 Neut % (Auto) 74.8 H Lymph % (Auto) 21.8 Bartholomew % (Auto) 2.5 Eos % (Auto) 0.1 Baso % (Auto) 0.4 Lymph # (Auto) 1.6 Bartholomew # (Auto) 0.2 Eos # (Auto) 0.0 Baso # (Auto) 0.0 Abs Immat Gran (auto) 0.03 Absolute Neuts (auto) 5.5 Absolute Nucleated RBC 0.000 Nucleated RBC % (auto) 0.0 Neutrophils % (Manual) Band Neutrophils % Lymphocytes % (Manual) Monocytes % (Manual) Metamyelocytes % Abs Neuts (Manual) Lymphocytes # (Manual) Monocytes # (Manual) Metamyelocytes # Platelet Estimate Plt Morphology Comment RBC Morphology Smear Tech's Comments VERIFIED PT INR D-Dimer High Sensitivty VBG pH 7.44 H VBG pCO2 37 VBG pO2 48 VBG HCO3 25 VBG O2 Saturation 75.0 VBG Base Excess 2.1 Sodium 142 Potassium 3.7 Chloride 104 Carbon Dioxide 27 Anion Gap 15 BUN 7 L Creatinine 0.81 Estim Creat Clear Calc 119.5 Estimated GFR > 60 POC Glucose Random Glucose 237 H Lactic Acid Calcium 8.7 Phosphorus Magnesium 2.0 Ferritin Total Bilirubin 0.4 Direct Bilirubin 0.2 AST 55 H ALT 41 H Alkaline Phosphatase 95 Lactate Dehydrogenase 455 H Total Creatine Kinase 192 H Troponin I High Sens C-Reactive Protein 20.09 H B-Natriuretic Peptide Total Protein 7.0 Albumin 3.9 Procalcitonin 11/10/21 11/10/21 11/10/21 19:07 19:07 19:07 WBC RBC Hgb Hct MCV MCH MCHC RDW Plt Count MPV Immature Gran % (Auto) Neut % (Auto) Lymph % (Auto) Bartholomew % (Auto) Eos % (Auto) Baso % (Auto) Lymph # (Auto) Bartholomew # (Auto) Eos # (Auto) Baso # (Auto) Abs Immat Gran (auto) Absolute Neuts (auto) Absolute Nucleated RBC Nucleated RBC % (auto) Neutrophils % (Manual) Band Neutrophils % Lymphocytes % (Manual) Monocytes % (Manual) Metamyelocytes % Abs Neuts (Manual) Lymphocytes # (Manual) Monocytes # (Manual) Metamyelocytes # Platelet Estimate Plt Morphology Comment RBC Morphology Smear Tech's Comments PT 13.7 H INR 1.2 H D-Dimer High Sensitivty VBG pH VBG pCO2 VBG pO2 VBG HCO3 VBG O2 Saturation VBG Base Excess Sodium Potassium Chloride Carbon Dioxide Anion Gap BUN Creatinine Estim Creat Clear Calc Estimated GFR POC Glucose Random Glucose Lactic Acid 1.5 Calcium Phosphorus Magnesium Ferritin 355 H Total Bilirubin Direct Bilirubin AST ALT Alkaline Phosphatase Lactate Dehydrogenase Total Creatine Kinase Troponin I High Sens C-Reactive Protein B-Natriuretic Peptide Total Protein Albumin Procalcitonin 11/10/21 11/10/21 11/10/21 19:07 19:07 19:08 WBC RBC Hgb Hct MCV MCH MCHC RDW Plt Count MPV Immature Gran % (Auto) Neut % (Auto) Lymph % (Auto) Bartholomew % (Auto) Eos % (Auto) Baso % (Auto) Lymph # (Auto) Bartholomew # (Auto) Eos # (Auto) Baso # (Auto) Abs Immat Gran (auto) Absolute Neuts (auto) Absolute Nucleated RBC Nucleated RBC % (auto) Neutrophils % (Manual) Band Neutrophils % Lymphocytes % (Manual) Monocytes % (Manual) Metamyelocytes % Abs Neuts (Manual) Lymphocytes # (Manual) Monocytes # (Manual) Metamyelocytes # Platelet Estimate Plt Morphology Comment RBC Morphology Smear Tech's Comments PT INR D-Dimer High Sensitivty 506 VBG pH VBG pCO2 VBG pO2 VBG HCO3 VBG O2 Saturation VBG Base Excess Sodium Potassium Chloride Carbon Dioxide Anion Gap BUN Creatinine Estim Creat Clear Calc Estimated GFR POC Glucose Random Glucose Lactic Acid Calcium Phosphorus Magnesium Ferritin Total Bilirubin Direct Bilirubin AST ALT Alkaline Phosphatase Lactate Dehydrogenase Total Creatine Kinase Troponin I High Sens 4.9 C-Reactive Protein B-Natriuretic Peptide 10 Total Protein Albumin Procalcitonin 0.13 11/10/21 11/11/21 11/11/21 21:46 00:08 04:45 WBC 5.9 RBC 4.04 L Hgb 11.7 L Hct 36.1 L MCV 89.4 MCH 29.0 MCHC 32.4 RDW 14.6 Plt Count 274 MPV 9.8 Immature Gran % (Auto) Cancelled Neut % (Auto) Cancelled Lymph % (Auto) Cancelled Bartholomew % (Auto) Cancelled Eos % (Auto) Cancelled Baso % (Auto) Cancelled Lymph # (Auto) Cancelled Bartholomew # (Auto) Cancelled Eos # (Auto) Cancelled Baso # (Auto) Cancelled Abs Immat Gran (auto) Cancelled Absolute Neuts (auto) Cancelled Absolute Nucleated RBC 0.000 Nucleated RBC % (auto) 0.0 Neutrophils % (Manual) 85 H Band Neutrophils % 5 Lymphocytes % (Manual) 8 L Monocytes % (Manual) 1 L Metamyelocytes % 1 Abs Neuts (Manual) 5.3 Lymphocytes # (Manual) 0.5 L Monocytes # (Manual) 0.1 Metamyelocytes # 0.1 Platelet Estimate NORMAL Plt Morphology Comment NORMAL RBC Morphology NORMAL Smear Tech's Comments PT INR D-Dimer High Sensitivty VBG pH VBG pCO2 VBG pO2 VBG HCO3 VBG O2 Saturation VBG Base Excess Sodium Potassium Chloride Carbon Dioxide Anion Gap BUN Creatinine Estim Creat Clear Calc Estimated GFR POC Glucose 225 H 255 H Random Glucose Lactic Acid Calcium Phosphorus Magnesium Ferritin Total Bilirubin Direct Bilirubin AST ALT Alkaline Phosphatase Lactate Dehydrogenase Total Creatine Kinase Troponin I High Sens C-Reactive Protein B-Natriuretic Peptide Total Protein Albumin Procalcitonin 11/11/21 11/11/21 11/11/21 04:45 04:45 04:46 WBC RBC Hgb Hct MCV MCH MCHC RDW Plt Count MPV Immature Gran % (Auto) Neut % (Auto) Lymph % (Auto) Bartholomew % (Auto) Eos % (Auto) Baso % (Auto) Lymph # (Auto) Bartholomew # (Auto) Eos # (Auto) Baso # (Auto) Abs Immat Gran (auto) Absolute Neuts (auto) Absolute Nucleated RBC Nucleated RBC % (auto) Neutrophils % (Manual) Band Neutrophils % Lymphocytes % (Manual) Monocytes % (Manual) Metamyelocytes % Abs Neuts (Manual) Lymphocytes # (Manual) Monocytes # (Manual) Metamyelocytes # Platelet Estimate Plt Morphology Comment RBC Morphology Smear Tech's Comments PT INR D-Dimer High Sensitivty 488 VBG pH 7.41 VBG pCO2 41 VBG pO2 53 VBG HCO3 26 VBG O2 Saturation 79.0 VBG Base Excess 1.8 Sodium 141 Potassium 4.1 Chloride 105 Carbon Dioxide 27 Anion Gap 13 BUN 6 L Creatinine 0.77 Estim Creat Clear Calc 123.3 Estimated GFR > 60 POC Glucose Random Glucose 254 H Lactic Acid Calcium 8.4 Phosphorus 2.9 Magnesium 2.1 Ferritin 311 H Total Bilirubin 0.3 Direct Bilirubin 0.2 AST 57 H ALT 41 H Alkaline Phosphatase 93 Lactate Dehydrogenase Total Creatine Kinase 191 H Troponin I High Sens C-Reactive Protein 21.07 H B-Natriuretic Peptide Total Protein 6.5 Albumin 3.6 Procalcitonin 11/11/21 07:20 WBC RBC Hgb Hct MCV MCH MCHC RDW Plt Count MPV Immature Gran % (Auto) Neut % (Auto) Lymph % (Auto) Bartholomew % (Auto) Eos % (Auto) Baso % (Auto) Lymph # (Auto) Bartholomew # (Auto) Eos # (Auto) Baso # (Auto) Abs Immat Gran (auto) Absolute Neuts (auto) Absolute Nucleated RBC Nucleated RBC % (auto) Neutrophils % (Manual) Band Neutrophils % Lymphocytes % (Manual) Monocytes % (Manual) Metamyelocytes % Abs Neuts (Manual) Lymphocytes # (Manual) Monocytes # (Manual) Metamyelocytes # Platelet Estimate Plt Morphology Comment RBC Morphology Smear Tech's Comments PT INR D-Dimer High Sensitivty VBG pH VBG pCO2 VBG pO2 VBG HCO3 VBG O2 Saturation VBG Base Excess Sodium Potassium Chloride Carbon Dioxide Anion Gap BUN Creatinine Estim Creat Clear Calc Estimated GFR POC Glucose 221 H Random Glucose Lactic Acid Calcium Phosphorus Magnesium Ferritin Total Bilirubin Direct Bilirubin AST ALT Alkaline Phosphatase Lactate Dehydrogenase Total Creatine Kinase Troponin I High Sens C-Reactive Protein B-Natriuretic Peptide Total Protein Albumin Procalcitonin Progress Note: A&P Assessment and plan (1) Diabetes type 2, uncontrolled: Status: Acute (2) Acute respiratory failure with hypoxia: Status: Acute (3) Obesity, morbid, BMI 50 or higher: Status: Acute (4) PRISCILLA treated with BiPAP: Status: Acute (5) Pneumonia due to 2019-nCoV: Status: Acute (6) Hypoxia: Status: Acute (7) Respiratory failure, acute: Status: Acute Plan plan is to observe on IMCU and on the above noninvasive therapy including nocturnal BiPAP as is her habit at home and we can introduce diet and insulin coverage Quality Stroke Does the patient have a stroke diagnosis?: No VTE Prior VTE?: No VTE Risk Level:: Medical - low VTE Device Contraindication: N/A - Device Ordered VTE Drug Contraindication: N/A - Med Ordered
[2021-11-11 11:23] LABS: Glucose, Whole Blood 248 mg/dL (60-115)
--- NOTE | 2021-11-11 14:42 | P.CNID_ITS ---
History of Present Illness Data of Consult Service Date: 11/11/21 Requesting physician: Vibha Shelton Primary Care Provider: Unknown Physician HPI Reason for consult: shortness of breath She presents with shortness of breath and cough with symptoms starting 10/31 and positive COVID test on 11/02/2021. She has diabetes and is not vaccinated. She is 93% on seven liters Zaidi She has had some yellow red sputum. Review of Systems Verdana 4l Review of Systems: Yes all other systems are reviewed and Verdana 4d are negative [facility] Past Medical History Medical History Asthma Diabetes Lymphedema Obesity PRISCILLA (obstructive sleep apnea) Family History Family history: reviewed and not pertinent Social History Social History Household Members: Children Housing: Apartment Do you presently have visiting nurse or other home services: Yes Patient Tobacco Use Status: Former Tobacco user e-Cigarette/Vaping Use: Former Use Use of substances other than those prescribed or required for medical reasons: No Currently Displaying Signs/Symptoms of Drug Intoxication Withdrawal: No Have you been hit, kicked, punched, or otherwise hurt by someone within the past year? If so, by whom?: No Do you feel safe in your current relationship?: No Current Relationship Is there a partner from a previous relationship who is making you feel unsafe now?: No Are you made to feel afraid or neglected: No Advance Directives: No Do you have thoughts of harming others: None Do you have a plan to hurt others: No Plan Recently lost weight without trying: No Nutrition Risks: No Nutritional Risk Patient : No : No Poor oral hygiene: No Meds Allergies Allergy/AdvReac Type Severity Reaction Status Date / Time No Known Allergies Allergy Verified 11/10/21 18:13 Active Medications: Current Medications Albuterol Sulfate (Albuterol Sulfate (0.083%) 2.5 Mg/3 Ml Vial.Neb) 2.5 mg INHALE Q4H PRN PRN Reason: sob Albuterol/Ipratropium (Albuterol/Iprat 2.5/0.5mg 3 Ml Ampul.Neb) 3 ml INHALE Q2H PRN PRN Reason: sob Dexamethasone Sodium Phosphate (Dexamethasone Sod Phosphate 4 Mg/Ml Vial) 6 mg IVPUSH DAILY [facility] Stop: 11/20/21 09:01 Last Admin: 11/11/21 08:48 Dose: 6 mg Documented by: Dextrose (Dextrose 50 % 25 Gm/50 Ml Syringe) 25 gm IVPUSH Q30M PRN PRN Reason: Nursing Actions in Insulin Infusion Protocol Fluvoxamine Maleate (Fluvoxamine Maleate 50 Mg Tablet) 100 mg PO Q12H [facility] Last Admin: 11/11/21 08:49 Dose: 100 mg Documented by: Heparin Sodium (Porcine) (Heparin Sodium,Porcine 5,000 Unit/Ml Vial) 5,000 unit SUBCUT Q12H [facility] Last Admin: 11/11/21 08:48 Dose: 5,000 unit Documented by: Insulin Human Lispro (Insulin Lispro 100 Unit/Ml 3 Ml Vial) 0 unit SUBCUT QIDACHS [facility]; Protocol Last Admin: 11/11/21 11:46 Dose: 4 unit Documented by: Pharmacy Consult (Consult Rx Perform Med Rec) 1 each MISCELLANE ONCE PRN PRN Reason: Consult order Pharmacy Consult (Consult Rx Vancomycin Dosing) 1 each MISCELLANE DAILY PRN PRN Reason: Consult order Home Medications Medication Instructions Recorded Confirmed Last Taken Type albuterol sulfate 1 inh INHALATION 11/10/21 11/10/21 Unknown History 90 mcg/actuation Q4H PRN aerosol inhaler (Ventolin HFA) cholecalciferol 1 cap PO DAILY 11/10/21 11/10/21 Unknown History (vitamin D3) 50 mcg (2,000 unit) capsule ibuprofen 800 mg 1 tab PO TID PRN 11/10/21 11/10/21 Unknown History tablet metformin 1,000 1 tab PO BID 11/10/21 11/10/21 Unknown History mg tablet Physical Exam Verdana 4l Vital Signs: Verdana 4d Verdana 4d Vital Signs: Verdana 4d Verdana 4Bd Last Vital Signs Verdana 4d Wage Analyst New 4d Wage Analyst New 4d Temp 98.2 F 11/11/21 12:00 Wage Analyst New 4d Pulse 84 11/11/21 12:00 Wage Analyst New 4d Resp 16 11/11/21 12:00 BP 143/88 H 11/11/21 12:00 Pulse Ox 93 11/11/21 12:00 Oxygen Flow Rate 15 11/10/21 20:59 BMI result Body Mass Index 55.5 Const: General: cooperative Eyes: General: appearance normal, both eyes and all related structures Pupils: Equal, round and reactive pupils present Resp: Effort & Inspection: tachypneic Cardio: Rate: regular rate Rhythm: regular rhythm GI: Palpation (GI): Soft to palpation and nontender Neuro: Cranial nerves: Yes Equal, round and reactive pupils present Extrem: General: Yes normal to inspection Results Labs CBC & Chem 7: 11/11/21 04:45 11/11/21 04:45 Labs: Short CBC 11/10/21 11/11/21 Range/Units 19:07 04:45 WBC 7.3 5.9 (4.8-10.8) X10*3/uL Hgb 12.7 11.7 L (12.0-16.0) g/dl Hct 38.9 36.1 L (37.0-47.0) % Plt Count 263 274 (160-400) X10*3/uL BMP 11/10/21 11/11/21 19:07 04:45 Sodium 142 141 Potassium 3.7 4.1 Chloride 104 105 Carbon Dioxide 27 27 BUN 7 L 6 L Creatinine 0.81 0.77 Calcium 8.7 8.4 Cardiac Enzymes 11/10/21 11/11/21 Range/Units 19:07 04:45 Total Creatine Kinase 192 H 191 H (26-140) U/L Liver Function 11/10/21 11/11/21 Range/Units 19:07 04:45 Total Bilirubin 0.4 0.3 (0.0-1.0) mg/dL Direct Bilirubin 0.2 0.2 (0.0-0.5) mg/dL AST 55 H 57 H (5-31) U/L ALT 41 H 41 H (0-31) U/L Alkaline Phosphatase 95 93 (39-117) U/L Albumin 3.9 3.6 (3.5-5.0) g/dL Assessment and Plan (1) Hypoxia: Status: Acute (2) Pneumonia due to 2019-nCoV: Status: Acute She has COVID symptoms of twelve days duration. She has passed window of Remdesivir usefulness after seven days She is candidate for Dexamethasone and oxygen No signs of VTE reported or opportunistic infections at this time (3) PRISCILLA treated with BiPAP: Status: Acute (4) Obesity, morbid, BMI 50 or higher: Status: Acute Plan Continue oxygen and steroids No Remdesivir Baricitinib if requires high flow Prognosis is guarded with very high BMI There is no antibiotic indication at this time
--- NOTE | 2021-11-11 15:00 | P.CNID_ITS ---
History of Present Illness Data of Consult Service Date: 11/11/21 Primary Care Provider: Unknown Physician [facility] Past Medical History Medical History Asthma Diabetes Lymphedema Obesity PRISCILLA (obstructive sleep apnea) Family History Family history: reviewed and not pertinent Social History Social History Household Members: Children Housing: Apartment Do you presently have visiting nurse or other home services: Yes Patient Tobacco Use Status: Former Tobacco user e-Cigarette/Vaping Use: Former Use service: No Meds Allergies Allergy/AdvReac Type Severity Reaction Status Date / Time No Known Allergies Allergy Verified 11/10/21 18:13 Active Medications: Current Medications Albuterol Sulfate (Albuterol Sulfate (0.083%) 2.5 Mg/3 Ml Vial.Neb) 2.5 mg INHALE Q4H PRN PRN Reason: sob Albuterol/Ipratropium (Albuterol/Iprat 2.5/0.5mg 3 Ml Ampul.Neb) 3 ml INHALE Q2H PRN PRN Reason: sob Dexamethasone Sodium Phosphate (Dexamethasone Sod Phosphate 4 Mg/Ml Vial) 6 mg IVPUSH DAILY [facility] Stop: 11/20/21 09:01 Last Admin: 11/11/21 08:48 Dose: 6 mg Documented by: Dextrose (Dextrose 50 % 25 Gm/50 Ml Syringe) 25 gm IVPUSH Q30M PRN PRN Reason: Nursing Actions in Insulin Infusion Protocol Fluvoxamine Maleate (Fluvoxamine Maleate 50 Mg Tablet) 100 mg PO Q12H [facility] Last Admin: 11/11/21 08:49 Dose: 100 mg Documented by: Heparin Sodium (Porcine) (Heparin Sodium,Porcine 5,000 Unit/Ml Vial) 5,000 unit SUBCUT Q12H [facility] Last Admin: 11/11/21 08:48 Dose: 5,000 unit Documented by: Insulin Human Lispro (Insulin Lispro 100 Unit/Ml 3 Ml Vial) 0 unit SUBCUT QIDACHS [facility]; Protocol Last Admin: 11/11/21 11:46 Dose: 4 unit Documented by: Pharmacy Consult (Consult Rx Perform Med Rec) 1 each MISCELLANE ONCE PRN PRN Reason: Consult order Pharmacy Consult (Consult Rx Vancomycin Dosing) 1 each MISCELLANE DAILY PRN PRN Reason: Consult order Home Medications Medication Instructions Recorded Confirmed Last Taken Type albuterol sulfate 90 mcg/actuation 1 inh INHALATION Q4H PRN 11/10/21 11/10/21 Unknown History aerosol inhaler (Ventolin HFA) cholecalciferol (vitamin D3) 50 1 cap PO DAILY 11/10/21 11/10/21 Unknown History mcg (2,000 unit) capsule ibuprofen 800 mg tablet 1 tab PO TID PRN 11/10/21 11/10/21 Unknown History metformin 1,000 mg tablet 1 tab PO BID 11/10/21 11/10/21 Unknown History Physical Exam Vital Signs: Vital Signs: Last Vital Signs Temp 98.2 F 11/11/21 12:00 Pulse 84 11/11/21 12:00 Resp 16 11/11/21 12:00 BP 143/88 H 11/11/21 12:00 Pulse Ox 93 11/11/21 12:00 Oxygen Flow Rate 15 11/10/21 20:59 BMI result Body Mass Index 55.5 Results Labs CBC & Chem 7: 11/21/21 06:52 11/21/21 06:52 Labs: Short CBC 11/10/21 11/11/21 Range/Units 19:07 04:45 WBC 7.3 5.9 (4.8-10.8) X10*3/uL Hgb 12.7 11.7 L (12.0-16.0) g/dl Hct 38.9 36.1 L (37.0-47.0) % Plt Count 263 274 (160-400) X10*3/uL BMP 11/10/21 11/11/21 19:07 04:45 Sodium 142 141 Potassium 3.7 4.1 Chloride 104 105 Carbon Dioxide 27 27 BUN 7 L 6 L Creatinine 0.81 0.77 Calcium 8.7 8.4 Cardiac Enzymes 11/10/21 11/11/21 Range/Units 19:07 04:45 Total Creatine Kinase 192 H 191 H (26-140) U/L Liver Function 11/10/21 11/11/21 Range/Units 19:07 04:45 Total Bilirubin 0.4 0.3 (0.0-1.0) mg/dL Direct Bilirubin 0.2 0.2 (0.0-0.5) mg/dL AST 55 H 57 H (5-31) U/L ALT 41 H 41 H (0-31) U/L Alkaline Phosphatase 95 93 (39-117) U/L Albumin 3.9 3.6 (3.5-5.0) g/dL Assessment and Plan (1) Hypoxia: Status: Acute (2) Pneumonia due to 2019-nCoV: Status: Resolved Assessment & Plan (1) Hypoxia: Code(s): R09.02 - Hypoxemia Category: Medical (2) Pneumonia due to 2019-nCoV: Code(s): U07.1 - COVID-19; J12.82 - Pneumonia due to coronavirus disease 2019 Category: Medical Medications: New glipizide ER 2.5 mg PO DAILY 30 tabs 0RF
--- NOTE | 2021-11-11 15:37 | PM.EVENT ---
Event Note Date of Service: 02/24/22 Event Note: Concerning over high flow address with Pulmonary ?baricitinib
[2021-11-11 16:20] LABS: Glucose, Whole Blood 251 mg/dL (60-115)
[2021-11-11 21:11] LABS: Glucose, Whole Blood 266 mg/dL (60-115)
[2021-11-11 21:35] LABS: Vancomycin Trough < 3.0 mcg/mL (10.0-20.0)
[2021-11-11] MEDS: Acetaminophen 325 MG TABLET 650 MG PO (21:51)
[2021-11-12] VITALS (11 sets, daily range): BP systolic 121–164; BP diastolic 62–95; PULSE 62–81; RESP 16–22; TEMP 36.2–37.3; O2SAT 90–98; BMI 54.8
[2021-11-12] MEDS: Ibuprofen 400 MG TABLET 800 MG PO (01:14)
[2021-11-12 07:15] LABS: Glucose, Whole Blood 238 mg/dL (60-115)
[2021-11-12 07:43] LABS: D Dimer High Sensitivity 565 NG/ML
[2021-11-12 07:53] LABS: Hematocrit 37.4 % (37.0-47.0); Imm Gran Abs Auto 0.03 X10*3/uL (0.00-0.03); Imm Gran Pct Auto 0.4 % (0.0-0.4); Lymphocytes Absolute Auto 1.4 X10*3/uL (1.2-4.9); MANUAL DIFF FLAG SCAN; Mean Corpuscular HGB Conc 32.1 g/dl (31.0-35.0); Mean Corpuscular Hemoglobin 28.7 pg (27.0-33.0); Mean Corpuscular Volume 89.5 fL (80.0-98.0); Mean Platelet Volume 9.7 fL (9.4-12.3); Monocytes Absolute Auto 0.2 X10*3/uL (0.1-1.2); Monocytes Percent Auto 3.1 % (2-11); Neutrophils Absolute Auto 5.2 x10*3/uL (2.0-8.3); Neutrophils Percent Auto 76.5 % (45-73); Platelet Count 350 X10*3/uL (160-400); Red Blood Count 4.18 X10*6/uL (4.20-5.50); Red Cell Distribution Width 14.5 % (11.0-16.0); SCAN SMEAR FLAG 1; White Blood Count 6.8 X10*3/uL (4.8-10.8)
[2021-11-12 07:57] LABS: Alanine Aminotransferase 45 U/L (0-31); Albumin Level 3.6 g/dL (3.5-5.0); Alkaline Phosphatase 90 U/L (39-117); Anion Gap 10 (12-20); Aspartate Amino Transferase 58 U/L (5-31); Bilirubin Direct 0.2 mg/dL (0.0-0.5); Bilirubin Total 0.3 mg/dL (0.0-1.0); Blood Urea Nitrogen 11 mg/dL (9-16); C Reactive Protein 11.71 mg/dL (< or = 0.50); Calcium 8.5 mg/dL (8.4-10.2); Carbon Dioxide 32 mmol/L (22-29); Chloride 104 mmol/L (96-108); Creatinine Clr Calc Pharmacy 124.2; Estimated Glomerular Filt Rate > 60; Glucose Random 248 mg/dL (60-115); Magnesium 2.3 mg/dL (1.6-2.6); Potassium 4.1 mmol/L (3.3-5.1); Sodium 142 mmol/L (135-145); Total Protein 6.5 g/dL (6.5-8.0)
[2021-11-12 08:10] LABS: Phosphorus 2.4 mg/dL (2.7-4.5)
[2021-11-12 08:11] LABS: Ferritin 352 ng/mL (10-250)
[2021-11-12 08:16] LABS: SLIDE REVIEW VERIFIED
[2021-11-12] MEDS: fluvoxaMINE Maleate 50 MG TABLET 100 MG PO ×2 (08:51→21:13)
[2021-11-12] MEDS: Heparin Sodium,Porcine 5,000 UNIT/ML VIAL 5000 UNIT SUBCUT ×2 (08:52→21:12)
[2021-11-12] MEDS: Insulin Lispro 100 UNIT/ML 3 ML VIAL SUBCUT ×4 (08:52→21:11)
[2021-11-12] MEDS: dexAMETHasone sod phosphate 4 MG/ML VIAL 6 MG IVPUSH (08:53)
--- NOTE | 2021-11-12 11:04 | MHC.CM.PN ---
IMM 11/12/21 Female 51 DX Covid Patient uses a cane for unsteady gait. [employer] services are provided by [facility]. A HCP has been documented and placed on chart. DP home with resumption of [employer]PER[employer] services. She will need a PT eval to assist with dispo. She may need assist with transportation.
[2021-11-12 11:25] LABS: Glucose, Whole Blood 240 mg/dL (60-115)
--- NOTE | 2021-11-12 12:59 | P.PNIM_ITS ---
Subjective Subjective Date of Service: 11/12/21 Interval History: F/u on resp failure due to covid, she feels better, on high flow and stating around 96 Review of Systems no fever +sob no confusion Physical Exam Verdana 4l Vital Signs: Verdana 4d Verdana 4d Vital Signs: Verdana 4d Verdana 4Bd Last Vital Signs Verdana 4d [employer] New [employer]d [employer] New [employer]d Temp 97.9 F 11/12/21 11:53 [employer] New 4d Pulse 72 11/12/21 11:53 [employer] Resp 22 H 11/12/21 12:44 BP 159/94 H 11/12/21 11:53 Pulse Ox 96 11/12/21 11:53 Oxygen Flow Rate 15 11/10/21 20:59 BMI result Body Mass Index 54.8 Const: Other: Alert and oriented x 3 CV RRR S1S2 lungs: Dimnished gianna Abd: NT, +BS Neuro: NF, Objective Data Active Medications Albuterol Sulfate (Albuterol Sulfate (0.083%) 2.5 Mg/3 Ml Vial.Neb) 2.5 mg INHALE Q4H PRN PRN Reason: sob Albuterol/Ipratropium (Albuterol/Iprat 2.5/0.5mg 3 Ml Ampul.Neb) 3 ml INHALE Q2H PRN PRN Reason: sob Baricitinib (Baricitinib 2 Mg Tablet) 4 mg PO Q24H [facility] Stop: 11/24/21 17:01 Last Admin: 11/11/21 17:26 Dose: 4 mg Documented by: TITO Dexamethasone Sodium Phosphate (Dexamethasone Sod Phosphate 4 Mg/Ml Vial) 6 mg IVPUSH DAILY [facility] Stop: 11/20/21 09:01 Last Admin: 11/12/21 08:53 Dose: 6 mg Documented by: SALOME Dextrose (Dextrose 50 % 25 Gm/50 Ml Syringe) 25 gm IVPUSH Q30M PRN PRN Reason: Nursing Actions in Insulin Infusion Protocol Fluvoxamine Maleate (Fluvoxamine Maleate 50 Mg Tablet) 100 mg PO Q12H [facility] Last Admin: 11/12/21 08:51 Dose: 100 mg Documented by: SALOME Heparin Sodium (Porcine) (Heparin Sodium,Porcine 5,000 Unit/Ml Vial) 5,000 unit SUBCUT Q12H [facility] Last Admin: 11/12/21 08:52 Dose: 5,000 unit Documented by: SALOME Insulin Human Lispro (Insulin Lispro 100 Unit/Ml 3 Ml Vial) 0 unit SUBCUT QIDACHS [facility]; Protocol Last Admin: 11/12/21 11:40 Dose: 4 unit Documented by: SALOME Pharmacy Consult (Consult Rx Perform Med Rec) 1 each MISCELLANE ONCE PRN PRN Reason: Consult order Pharmacy Consult (Consult Rx Vancomycin Dosing) 1 each MISCELLANE DAILY PRN PRN Reason: Consult order Labs CBC & Chem 7: 11/12/21 07:25 11/12/21 07:25 Labs: Laboratory Results - last 24 hr 11/11/21 11/11/21 11/11/21 16:14 21:07 21:08 MCV MCH MCHC RDW Plt Count MPV Immature Gran % (Auto) Neut % (Auto) Lymph % (Auto) [place] % (Auto) Eos % (Auto) Baso % (Auto) Lymph # (Auto) [place] # (Auto) Eos # (Auto) Baso # (Auto) Abs Immat Gran (auto) Absolute Neuts (auto) Absolute Nucleated RBC Nucleated RBC % (auto) Smear Tech's Comments D-Dimer High Sensitivty Anion Gap Estim Creat Clear Calc Estimated GFR POC Glucose 251 H 266 H Random Glucose Calcium Phosphorus Magnesium Ferritin Total Bilirubin Direct Bilirubin AST ALT Alkaline Phosphatase Total Creatine Kinase C-Reactive Protein Total Protein Albumin Vancomycin Trough < 3.0 L 11/12/21 11/12/21 11/12/21 07:07 07:25 07:25 MCV 89.5 MCH 28.7 MCHC 32.1 RDW 14.5 Plt Count 350 D MPV 9.7 Immature Gran % (Auto) 0.4 Neut % (Auto) 76.5 H Lymph % (Auto) 20.0 [place] % (Auto) 3.1 Eos % (Auto) 0.0 Baso % (Auto) 0.0 Lymph # (Auto) 1.4 [place] # (Auto) 0.2 Eos # (Auto) 0.0 Baso # (Auto) 0.0 Abs Immat Gran (auto) 0.03 Absolute Neuts (auto) 5.2 Absolute Nucleated RBC 0.000 Nucleated RBC % (auto) 0.0 Smear Tech's Comments VERIFIED D-Dimer High Sensitivty 565 Anion Gap Estim Creat Clear Calc Estimated GFR POC Glucose 238 H Random Glucose Calcium Phosphorus Magnesium Ferritin Total Bilirubin Direct Bilirubin AST ALT Alkaline Phosphatase Total Creatine Kinase C-Reactive Protein Total Protein Albumin Vancomycin Trough 11/12/21 11/12/21 07:25 11:16 MCV MCH MCHC RDW Plt Count MPV Immature Gran % (Auto) Neut % (Auto) Lymph % (Auto) [place] % (Auto) Eos % (Auto) Baso % (Auto) Lymph # (Auto) [place] # (Auto) Eos # (Auto) Baso # (Auto) Abs Immat Gran (auto) Absolute Neuts (auto) Absolute Nucleated RBC Nucleated RBC % (auto) Smear Tech's Comments D-Dimer High Sensitivty Anion Gap 10 L Estim Creat Clear Calc 124.2 Estimated GFR > 60 POC Glucose 240 H Random Glucose 248 H Calcium 8.5 Phosphorus 2.4 L Magnesium 2.3 Ferritin 352 H Total Bilirubin 0.3 Direct Bilirubin 0.2 AST 58 H ALT 45 H Alkaline Phosphatase 90 Total Creatine Kinase 181 H C-Reactive Protein 11.71 H Total Protein 6.5 Albumin 3.6 Vancomycin Trough Microbiology Microbiology Results: Microbiology 11/11/21 00:45 Gram Stain - Final Sputum - Expectorated Sputum Culture - Final 11/10/21 19:07 Blood Culture - Preliminary Blood - Venous No growth after 24 hours. 11/10/21 19:08 Blood Culture - Preliminary Blood - Venous No growth after 24 hours. Assessment and Plan (1) Pneumonia due to 2019-nCoV: Status: Acute (2) Diabetes type 2, uncontrolled: Status: Acute (3) Acute respiratory failure with hypoxia: Status: Acute (4) Obesity, morbid, BMI 50 or higher: Status: Acute (5) PRISCILLA treated with BiPAP: Status: Acute Plan 51 morbidly obese with diabetes, PRISCILLA on CPAP, asthma, unvaccinated for covid admitted to ICU for rescue BIPAP from covid associated acute hypoxic respiratory failure and later transitioned to high flow with improvment. Acute hypoxic respiratory failure d/t covid 19 pneumonia -continue oxygen by high flow, titrate to O2 > 90 -Continue Baricitinb D2 -on Luvox--started in ICU Diabetes--restart Metformin, SSI, diabetic diet Obesity--weight loss adivsed, and health benefits. PRISCILLA--BiPAP or at night. Quality Stroke Does the patient have a stroke diagnosis?: No VTE Prior VTE?: No VTE Risk Level:: Medical - low VTE Device Contraindication: N/A - Device Ordered VTE Drug Contraindication: N/A - Med Ordered
[2021-11-12 15:59] LABS: Glucose, Whole Blood 304 mg/dL (60-115)
[2021-11-12 20:04] LABS: Glucose, Whole Blood 284 mg/dL (60-115)
[2021-11-12 20:28] LABS: VBG Base Excess 7.6 mmol/L; VBG HCO3 33 mmol/L (22-26); VBG pCO2 48 mmHg; VBG pH 7.44 (7.32-7.43); VBG pO2 35 mmHg
[2021-11-12] MEDS: Morphine Sulfate 2 MG/ML CARTRIDGE 1 MG IVPUSH (21:12)
[2021-11-12] MEDS: metFORMIN HCl 1,000 MG TABLET 1000 MG PO (21:13)
[2021-11-12] MEDS: Benzonatate 100 MG CAPSULE PO (21:13)
[2021-11-13] VITALS (12 sets, daily range): BP systolic 123–164; BP diastolic 75–95; PULSE 62–88; RESP 16–32; TEMP 36.5–37.6; O2SAT 88–98; BMI 54.8
[2021-11-13 00:36] LABS: Venous Blood Gas Refer to POC result
[2021-11-13] MEDS: Ibuprofen 400 MG TABLET 800 MG PO (01:10)
[2021-11-13 06:47] LABS: Basophils Percent Auto 0.1 % (0-2); Hematocrit 37.8 % (37.0-47.0); Hemoglobin 12.3 g/dl (12.0-16.0); Imm Gran Abs Auto 0.05 X10*3/uL (0.00-0.03); Imm Gran Pct Auto 0.7 % (0.0-0.4); Lymphocytes Absolute Auto 1.7 X10*3/uL (1.2-4.9); Lymphocytes Percent Auto 26.1 % (20-40); MANUAL DIFF FLAG SCAN; Mean Corpuscular HGB Conc 32.5 g/dl (31.0-35.0); Mean Corpuscular Hemoglobin 28.9 pg (27.0-33.0); Mean Corpuscular Volume 88.7 fL (80.0-98.0); Mean Platelet Volume 9.6 fL (9.4-12.3); Monocytes Absolute Auto 0.3 X10*3/uL (0.1-1.2); Monocytes Percent Auto 4.5 % (2-11); Neutrophils Absolute Auto 4.6 x10*3/uL (2.0-8.3); Neutrophils Percent Auto 68.6 % (45-73); Platelet Count 355 X10*3/uL (160-400); Red Blood Count 4.26 X10*6/uL (4.20-5.50); Red Cell Distribution Width 14.3 % (11.0-16.0); SCAN SMEAR FLAG 1; White Blood Count 6.7 X10*3/uL (4.8-10.8)
[2021-11-13 06:52] LABS: D Dimer High Sensitivity 1152 NG/ML
[2021-11-13 07:01] LABS: Alanine Aminotransferase 45 U/L (0-31); Albumin Level 3.5 g/dL (3.5-5.0); Alkaline Phosphatase 94 U/L (39-117); Anion Gap 14 (12-20); Aspartate Amino Transferase 47 U/L (5-31); Bilirubin Direct 0.2 mg/dL (0.0-0.5); Bilirubin Total 0.5 mg/dL (0.0-1.0); Blood Urea Nitrogen 14 mg/dL (9-16); C Reactive Protein 8.62 mg/dL (< or = 0.50); Calcium 9.1 mg/dL (8.4-10.2); Carbon Dioxide 31 mmol/L (22-29); Chloride 102 mmol/L (96-108); Creatinine Clr Calc Pharmacy 119.4; Estimated Glomerular Filt Rate > 60; Glucose Random 198 mg/dL (60-115); Magnesium 2.1 mg/dL (1.6-2.6); Potassium 3.9 mmol/L (3.3-5.1); Sodium 143 mmol/L (135-145); Total Protein 6.6 g/dL (6.5-8.0)
[2021-11-13 07:06] LABS: SLIDE REVIEW VERIFIED
[2021-11-13 07:14] LABS: Ferritin 310 ng/mL (10-250)
[2021-11-13 07:14] LABS: Glucose, Whole Blood 203 mg/dL (60-115)
[2021-11-13 08:07] LABS: VBG Base Excess 7.8 mmol/L; VBG HCO3 32 mmol/L (22-26); VBG pCO2 46 mmHg; VBG pH 7.45 (7.32-7.43); VBG pO2 80 mmHg
[2021-11-13] MEDS: dexAMETHasone sod phosphate 4 MG/ML VIAL 6 MG IVPUSH (08:25)
[2021-11-13] MEDS: Insulin Lispro 100 UNIT/ML 3 ML VIAL SUBCUT ×4 (08:25→21:27)
[2021-11-13] MEDS: fluvoxaMINE Maleate 50 MG TABLET 100 MG PO ×2 (08:25→21:26)
[2021-11-13] MEDS: Cholecalciferol (Vitamin D3) 25 MCG TABLET 50 MCG PO (08:25)
[2021-11-13] MEDS: Benzonatate 100 MG CAPSULE PO ×3 (08:25→21:27)
[2021-11-13] MEDS: metFORMIN HCl 1,000 MG TABLET 1000 MG PO ×2 (08:25→21:26)
[2021-11-13] MEDS: Heparin Sodium,Porcine 5,000 UNIT/ML VIAL 5000 UNIT SUBCUT ×2 (08:25→21:26)
[2021-11-13 08:30] LABS: Venous Blood Gas Refer to POC result
--- NOTE | 2021-11-13 09:55 | P.PNIM_ITS ---
Subjective Subjective Date of Service: 11/13/21 Interval History: F/u on resp failure due to covid, still feels sob on high flow and stating around 98, Review of Systems no fever +sob no confusion Physical Exam Verdana 4l Vital Signs: Verdana 4d Verdana 4d Vital Signs: Verdana 4d Verdana 4Bd Last Vital Signs Verdana 4d [employer] New 4d [employer] New 4d Temp 97.7 F 11/13/21 08:00 [employer] New 4d Pulse 80 11/13/21 08:00 [employer] New 4d Resp 18 11/13/21 08:29 BP 133/75 11/13/21 08:00 Pulse Ox 98 11/13/21 08:00 Oxygen Flow Rate 15 11/10/21 20:59 BMI result Body Mass Index 54.8 Const: Other: Alert and oriented x 3 CV RRR S1S2 lungs: Dimnished gianna Abd: NT, +BS Neuro: NF, Objective Data Active Medications Albuterol Sulfate (Albuterol Sulfate (0.083%) 2.5 Mg/3 Ml Vial.Neb) 2.5 mg INHALE Q4H PRN PRN Reason: sob Albuterol Sulfate (Albuterol Sulfate 90 Mcg 8 Gm Inhaler) 1 puff INHALE Q4H PRN PRN Reason: Wheezing Albuterol/Ipratropium (Albuterol/Iprat 2.5/0.5mg 3 Ml Ampul.Neb) 3 ml INHALE Q2H PRN PRN Reason: sob Baricitinib (Baricitinib 2 Mg Tablet) 4 mg PO Q24H [facility] Stop: 11/24/21 17:01 Last Admin: 11/12/21 17:08 Dose: 4 mg Documented by: SALOME Benzonatate (Benzonatate 100 Mg Capsule) 100 mg PO TID PRN PRN Reason: Cough Last Admin: 11/13/21 08:25 Dose: 100 mg Documented by: VIN Dexamethasone Sodium Phosphate (Dexamethasone Sod Phosphate 4 Mg/Ml Vial) 6 mg IVPUSH DAILY [facility] Stop: 11/20/21 09:01 Last Admin: 11/13/21 08:25 Dose: 6 mg Documented by: VIN Dextrose (Dextrose 50 % 25 Gm/50 Ml Syringe) 25 gm IVPUSH Q30M PRN PRN Reason: Nursing Actions in Insulin Infusion Protocol Fluvoxamine Maleate (Fluvoxamine Maleate 50 Mg Tablet) 100 mg PO Q12H [facility] Last Admin: 11/13/21 08:25 Dose: 100 mg Documented by: VIN Heparin Sodium (Porcine) (Heparin Sodium,Porcine 5,000 Unit/Ml Vial) 5,000 unit SUBCUT Q12H [facility] Last Admin: 11/13/21 08:25 Dose: 5,000 unit Documented by: VIN Insulin Human Lispro (Insulin Lispro 100 Unit/Ml 3 Ml Vial) 0 unit SUBCUT QIDACHS [facility]; Protocol Last Admin: 11/13/21 08:25 Dose: 4 unit Documented by: VIN Metformin HCl (Metformin Hcl 1,000 Mg Tablet) 1,000 mg PO BID [facility] Last Admin: 11/13/21 08:25 Dose: 1,000 mg Documented by: VIN Morphine Sulfate (Morphine Sulfate 2 Mg/Ml Cartridge) 1 mg IVPUSH Q4H PRN; Protocol PRN Reason: pain/SOB Last Admin: 11/12/21 21:12 Dose: 1 mg Documented by: MISSY Pharmacy Consult (Consult Rx Perform Med Rec) 1 each MISCELLANE ONCE PRN PRN Reason: Consult order Pharmacy Consult (Consult Rx Vancomycin Dosing) 1 each MISCELLANE DAILY PRN PRN Reason: Consult order Vitamin D (Cholecalciferol (Vitamin D3) 25 Mcg Tablet) 50 mcg PO DAILY [facility] Last Admin: 11/13/21 08:25 Dose: 50 mcg Documented by: VIN Labs CBC & Chem 7: 11/13/21 06:28 11/13/21 06:28 Labs: Laboratory Results - last 24 hr 11/12/21 11/12/21 11/12/21 11:16 15:54 20:00 MCV MCH MCHC RDW Plt Count MPV Immature Gran % (Auto) Neut % (Auto) Lymph % (Auto) [place] % (Auto) Eos % (Auto) Baso % (Auto) Lymph # (Auto) [place] # (Auto) Eos # (Auto) Baso # (Auto) Abs Immat Gran (auto) Absolute Neuts (auto) Absolute Nucleated RBC Nucleated RBC % (auto) Smear Tech's Comments D-Dimer High Sensitivty VBG pH VBG pCO2 VBG pO2 VBG HCO3 VBG O2 Saturation VBG Base Excess Anion Gap Estim Creat Clear Calc Estimated GFR POC Glucose 240 H 304 H 284 H Random Glucose Calcium Phosphorus Magnesium Ferritin Total Bilirubin Direct Bilirubin AST ALT Alkaline Phosphatase Total Creatine Kinase C-Reactive Protein Total Protein Albumin 11/12/21 11/13/21 11/13/21 20:20 06:28 06:28 MCV 88.7 MCH 28.9 MCHC 32.5 RDW 14.3 Plt Count 355 MPV 9.6 Immature Gran % (Auto) 0.7 H Neut % (Auto) 68.6 Lymph % (Auto) 26.1 [place] % (Auto) 4.5 Eos % (Auto) 0.0 Baso % (Auto) 0.1 Lymph # (Auto) 1.7 [place] # (Auto) 0.3 Eos # (Auto) 0.0 Baso # (Auto) 0.0 Abs Immat Gran (auto) 0.05 H Absolute Neuts (auto) 4.6 Absolute Nucleated RBC 0.000 Nucleated RBC % (auto) 0.0 Smear Tech's Comments VERIFIED D-Dimer High Sensitivty 1152 VBG pH 7.44 H VBG pCO2 48 VBG pO2 35 VBG HCO3 33 H VBG O2 Saturation 52.0 VBG Base Excess 7.6 Anion Gap Estim Creat Clear Calc Estimated GFR POC Glucose Random Glucose Calcium Phosphorus Magnesium Ferritin Total Bilirubin Direct Bilirubin AST ALT Alkaline Phosphatase Total Creatine Kinase C-Reactive Protein Total Protein Albumin 11/13/21 11/13/21 11/13/21 06:28 06:33 07:10 MCV MCH MCHC RDW Plt Count MPV Immature Gran % (Auto) Neut % (Auto) Lymph % (Auto) [place] % (Auto) Eos % (Auto) Baso % (Auto) Lymph # (Auto) [place] # (Auto) Eos # (Auto) Baso # (Auto) Abs Immat Gran (auto) Absolute Neuts (auto) Absolute Nucleated RBC Nucleated RBC % (auto) Smear Tech's Comments D-Dimer High Sensitivty VBG pH 7.45 H VBG pCO2 46 VBG pO2 80 VBG HCO3 32 H VBG O2 Saturation 94.0 VBG Base Excess 7.8 Anion Gap 14 Estim Creat Clear Calc 119.4 Estimated GFR > 60 POC Glucose 203 H Random Glucose 198 H Calcium 9.1 D Phosphorus 3.0 Magnesium 2.1 Ferritin 310 H Total Bilirubin 0.5 Direct Bilirubin 0.2 AST 47 H ALT 45 H Alkaline Phosphatase 94 Total Creatine Kinase 134 C-Reactive Protein 8.62 H Total Protein 6.6 Albumin 3.5 Microbiology Microbiology Results: Microbiology 11/10/21 19:07 Blood Culture - Preliminary Blood - Venous No growth after 48 hours. 11/10/21 19:08 Blood Culture - Preliminary Blood - Venous No growth after 48 hours. 11/11/21 00:45 Gram Stain - Final Sputum - Expectorated Sputum Culture - Final Assessment and Plan (1) Pneumonia due to 2019-nCoV: Status: Acute (2) Diabetes type 2, uncontrolled: Status: Acute (3) Acute respiratory failure with hypoxia: Status: Acute (4) Obesity, morbid, BMI 50 or higher: Status: Acute (5) PRISCILLA treated with BiPAP: Status: Acute Plan 51 morbidly obese with diabetes, PRISCILLA on CPAP, asthma, unvaccinated for covid admitted to ICU for rescue BIPAP from covid associated acute hypoxic respiratory failure and later transitioned to high flow with improvment. Acute hypoxic respiratory failure d/t covid 19 pneumonia -continue oxygen by high flow, titrate to O2 > 90 -Continue Baricitinb 12/22 -on Luvox--started in ICU, not sure of benefit but given no harm and no pt objectio, continue for now Diabetes--continue Metformin, SSI, diabetic diet Obesity--weight loss adivsed, and health benefits. PRISCILLA--BiPAP or at night. Heparin for DVT proph Quality Stroke Does the patient have a stroke diagnosis?: No VTE Prior VTE?: No VTE Risk Level:: Medical - low VTE Device Contraindication: N/A - Device Ordered VTE Drug Contraindication: N/A - Med Ordered
[2021-11-13 11:26] LABS: Glucose, Whole Blood 245 mg/dL (60-115)
[2021-11-13 16:17] LABS: Glucose, Whole Blood 269 mg/dL (60-115)
[2021-11-13 20:02] LABS: Glucose, Whole Blood 259 mg/dL (60-115)
[2021-11-14] VITALS (11 sets, daily range): BP systolic 138–166; BP diastolic 74–92; PULSE 54–80; RESP 20–24; TEMP 35.6–37.3; O2SAT 90–99; BMI 54.8
[2021-11-14 07:19] LABS: Venous Blood Gas Refer to POC result
[2021-11-14 07:20] LABS: VBG Base Excess 9.4 mmol/L; VBG HCO3 33 mmol/L (22-26); VBG pCO2 43 mmHg; VBG pO2 152 mmHg
[2021-11-14 07:21] LABS: Basophils Percent Auto 0.1 % (0-2); Eosinophils Percent Auto 0.3 % (0-4); Hematocrit 38.3 % (37.0-47.0); Hemoglobin 12.5 g/dl (12.0-16.0); Imm Gran Abs Auto 0.06 X10*3/uL (0.00-0.03); Imm Gran Pct Auto 0.9 % (0.0-0.4); Lymphocytes Absolute Auto 2.1 X10*3/uL (1.2-4.9); MANUAL DIFF FLAG SCAN; Mean Corpuscular HGB Conc 32.6 g/dl (31.0-35.0); Mean Corpuscular Volume 88.9 fL (80.0-98.0); Mean Platelet Volume 9.4 fL (9.4-12.3); Monocytes Absolute Auto 0.3 X10*3/uL (0.1-1.2); Neutrophils Absolute Auto 4.2 x10*3/uL (2.0-8.3); Neutrophils Percent Auto 62.7 % (45-73); Platelet Count 349 X10*3/uL (160-400); Red Blood Count 4.31 X10*6/uL (4.20-5.50); Red Cell Distribution Width 13.9 % (11.0-16.0); SCAN SMEAR FLAG 1; White Blood Count 6.8 X10*3/uL (4.8-10.8)
[2021-11-14 07:26] LABS: D Dimer High Sensitivity 3333 NG/ML
[2021-11-14 07:31] LABS: Glucose, Whole Blood 138 mg/dL (60-115)
[2021-11-14 07:50] LABS: SLIDE REVIEW VERIFIED
[2021-11-14 07:55] LABS: Alanine Aminotransferase 38 U/L (0-31); Albumin Level 3.5 g/dL (3.5-5.0); Alkaline Phosphatase 86 U/L (39-117); Anion Gap 15 (12-20); Aspartate Amino Transferase 36 U/L (5-31); Bilirubin Direct 0.2 mg/dL (0.0-0.5); Bilirubin Total 0.5 mg/dL (0.0-1.0); Blood Urea Nitrogen 15 mg/dL (9-16); C Reactive Protein 5.16 mg/dL (< or = 0.50); Carbon Dioxide 31 mmol/L (22-29); Chloride 103 mmol/L (96-108); Creatinine Clr Calc Pharmacy 112.3; Estimated Glomerular Filt Rate > 60; Glucose Random 136 mg/dL (60-115); Magnesium 1.9 mg/dL (1.6-2.6); Phosphorus 2.9 mg/dL (2.7-4.5); Potassium 3.8 mmol/L (3.3-5.1); Sodium 145 mmol/L (135-145); Total Protein 6.5 g/dL (6.5-8.0)
[2021-11-14 08:16] LABS: Ferritin 223 ng/mL (10-250)
[2021-11-14] MEDS: fluvoxaMINE Maleate 50 MG TABLET 100 MG PO ×2 (09:11→20:24)
[2021-11-14] MEDS: Heparin Sodium,Porcine 5,000 UNIT/ML VIAL 5000 UNIT SUBCUT ×2 (09:11→20:24)
[2021-11-14] MEDS: metFORMIN HCl 1,000 MG TABLET 1000 MG PO ×2 (09:11→20:24)
[2021-11-14] MEDS: Benzonatate 100 MG CAPSULE PO (09:11)
[2021-11-14] MEDS: dexAMETHasone sod phosphate 4 MG/ML VIAL 6 MG IVPUSH (09:11)
[2021-11-14] MEDS: Cholecalciferol (Vitamin D3) 25 MCG TABLET 50 MCG PO (09:12)
[2021-11-14] MEDS: Ibuprofen 600 MG TABLET PO (09:23)
--- NOTE | 2021-11-14 11:06 | P.CDIC_ITS ---
CDI Concurrent Query Documentation Clarification: PHYSICIAN'S DOCUMENTATION REQUEST Date of Query: 11/14/21 1106 Patient Name: Sophie Caro Admit Date: 11/10/21 Dear Doctor, A review of the medical record indicates additional documentation may be needed. Please review below and update the documentation accordingly. Clinical Indicators: Verdana 4Bd Risk Factors/Clinical Indicators/Treatments Verdana 4d ICU: 2/1 - Diabetes Type 2, uncontrolled. PN: 2/3 - Diabetes melliltus, uncontrolled Please clarify the following regarding Diabetes Mellitus (DM): additional specfics to dm uncontrolled Complications of DM: uncontrolled * Hypoglycemia * Hyperglycemia * Other complication ? please specify * Unable to determine Use of terms such as suspected, likely, concern for, or probable (associated with a specific diagnosis that is being evaluated, monitored, or treated as if it exists) are acceptable and can be coded in the inpatient setting, when documented at the time of discharge. Thank you, [facility], CDIS Extension: [phone] Please use your independent medical judgment in providing your response. THIS QUERY IS PART OF THE PERMANENT MEDICAL RECORD Provider Response: Other (Diabetes with hyperglycemia due to steroid) Other Diagnosis: diabetes with hyperglycemia
--- NOTE | 2021-11-14 11:13 | P.PNIM_ITS ---
Subjective Subjective Date of Service: 11/14/21 Interval History: F/u on resp failure due to covid, still feels sob on high flow and stating around 90 to 94 Review of Systems no fever +sob, +cough no confusion Physical Exam Verdana 4l Vital Signs: Verdana 4d Verdana 4d Vital Signs: Verdana 4d Verdana 4Bd Last Vital Signs Verdana 4d [employer] New 4d [employer] New 4d Temp 98.8 F 11/14/21 07:51 [employer] New 4d Pulse 77 11/14/21 07:51 [employer] New 4d Resp 20 11/14/21 08:13 BP 146/74 H 11/14/21 07:51 Pulse Ox 94 11/14/21 07:51 Oxygen Flow Rate 15 11/10/21 20:59 BMI result Body Mass Index 54.8 Const: Other: Alert and oriented x 3 CV RRR S1S2 lungs: Dimnished gianna Abd: NT, +BS Neuro: NF, Objective Data Active Medications Albuterol Sulfate (Albuterol Sulfate (0.083%) 2.5 Mg/3 Ml Vial.Neb) 2.5 mg INHALE Q4H PRN PRN Reason: sob Albuterol Sulfate (Albuterol Sulfate 90 Mcg 8 Gm Inhaler) 1 puff INHALE Q4H PRN PRN Reason: Wheezing Albuterol/Ipratropium (Albuterol/Iprat 2.5/0.5mg 3 Ml Ampul.Neb) 3 ml INHALE Q2H PRN PRN Reason: sob Baricitinib (Baricitinib 2 Mg Tablet) 4 mg PO Q24H [facility] Stop: 11/24/21 17:01 Last Admin: 11/13/21 17:22 Dose: 4 mg Documented by: VIN Benzonatate (Benzonatate 100 Mg Capsule) 100 mg PO TID PRN PRN Reason: Cough Last Admin: 11/14/21 09:11 Dose: 100 mg Documented by: RACHID Dexamethasone Sodium Phosphate (Dexamethasone Sod Phosphate 4 Mg/Ml Vial) 6 mg IVPUSH DAILY [facility] Stop: 11/20/21 09:01 Last Admin: 11/14/21 09:11 Dose: 6 mg Documented by: RACHID Dextrose (Dextrose 50 % 25 Gm/50 Ml Syringe) 25 gm IVPUSH Q30M PRN PRN Reason: Nursing Actions in Insulin Infusion Protocol Fluvoxamine Maleate (Fluvoxamine Maleate 50 Mg Tablet) 100 mg PO Q12H [facility] Last Admin: 11/14/21 09:11 Dose: 100 mg Documented by: RACHID Heparin Sodium (Porcine) (Heparin Sodium,Porcine 5,000 Unit/Ml Vial) 5,000 unit SUBCUT Q12H [facility] Last Admin: 11/14/21 09:11 Dose: 5,000 unit Documented by: RACHID Ibuprofen (Ibuprofen 600 Mg Tablet) 600 mg PO Q6H PRN PRN Reason: Headache Last Admin: 11/14/21 09:23 Dose: 600 mg Documented by: RACHID Insulin Human Lispro (Insulin Lispro 100 Unit/Ml 3 Ml Vial) 0 unit SUBCUT QIDACHS [facility]; Protocol Last Admin: 11/14/21 08:57 Dose: Not Given Documented by: RACHID Non-Admin Reason: No Insulin Coverage Metformin HCl (Metformin Hcl 1,000 Mg Tablet) 1,000 mg PO BID [facility] Last Admin: 11/14/21 09:11 Dose: 1,000 mg Documented by: RACHID Morphine Sulfate (Morphine Sulfate 2 Mg/Ml Cartridge) 1 mg IVPUSH Q4H PRN; Protocol PRN Reason: pain/SOB Last Admin: 11/12/21 21:12 Dose: 1 mg Documented by: MISSY Pharmacy Consult (Consult Rx Perform Med Rec) 1 each MISCELLANE ONCE PRN PRN Reason: Consult order Pharmacy Consult (Consult Rx Vancomycin Dosing) 1 each MISCELLANE DAILY PRN PRN Reason: Consult order Vitamin D (Cholecalciferol (Vitamin D3) 25 Mcg Tablet) 50 mcg PO DAILY [facility] Last Admin: 11/14/21 09:12 Dose: 50 mcg Documented by: RACHID Labs CBC & Chem 7: 11/14/21 06:59 11/14/21 06:59 Labs: Laboratory Results - last 24 hr 11/13/21 11/13/21 11/13/21 11:22 16:12 19:56 MCV MCH MCHC RDW Plt Count MPV Immature Gran % (Auto) Neut % (Auto) Lymph % (Auto) [place] % (Auto) Eos % (Auto) Baso % (Auto) Lymph # (Auto) [place] # (Auto) Eos # (Auto) Baso # (Auto) Abs Immat Gran (auto) Absolute Neuts (auto) Absolute Nucleated RBC Nucleated RBC % (auto) Smear Tech's Comments D-Dimer High Sensitivty VBG pH VBG pCO2 VBG pO2 VBG HCO3 VBG O2 Saturation VBG Base Excess Anion Gap Estim Creat Clear Calc Estimated GFR POC Glucose 245 H 269 H 259 H Random Glucose Calcium Phosphorus Magnesium Ferritin Total Bilirubin Direct Bilirubin AST ALT Alkaline Phosphatase Total Creatine Kinase C-Reactive Protein Total Protein Albumin 11/14/21 11/14/21 11/14/21 06:59 06:59 06:59 MCV 88.9 MCH 29.0 MCHC 32.6 RDW 13.9 Plt Count 349 MPV 9.4 Immature Gran % (Auto) 0.9 H Neut % (Auto) 62.7 Lymph % (Auto) 31.0 [place] % (Auto) 5.0 Eos % (Auto) 0.3 Baso % (Auto) 0.1 Lymph # (Auto) 2.1 [place] # (Auto) 0.3 Eos # (Auto) 0.0 Baso # (Auto) 0.0 Abs Immat Gran (auto) 0.06 H Absolute Neuts (auto) 4.2 Absolute Nucleated RBC 0.000 Nucleated RBC % (auto) 0.0 Smear Tech's Comments VERIFIED D-Dimer High Sensitivty 3333 VBG pH VBG pCO2 VBG pO2 VBG HCO3 VBG O2 Saturation VBG Base Excess Anion Gap 15 Estim Creat Clear Calc 112.3 Estimated GFR > 60 POC Glucose Random Glucose 136 H Calcium 9.0 Phosphorus 2.9 Magnesium 1.9 Ferritin 223 Total Bilirubin 0.5 Direct Bilirubin 0.2 AST 36 H ALT 38 H Alkaline Phosphatase 86 Total Creatine Kinase 98 C-Reactive Protein 5.16 H Total Protein 6.5 Albumin 3.5 11/14/21 11/14/21 07:13 07:21 MCV MCH MCHC RDW Plt Count MPV Immature Gran % (Auto) Neut % (Auto) Lymph % (Auto) [place] % (Auto) Eos % (Auto) Baso % (Auto) Lymph # (Auto) [place] # (Auto) Eos # (Auto) Baso # (Auto) Abs Immat Gran (auto) Absolute Neuts (auto) Absolute Nucleated RBC Nucleated RBC % (auto) Smear Tech's Comments D-Dimer High Sensitivty VBG pH 7.50 H VBG pCO2 43 VBG pO2 152 VBG HCO3 33 H VBG O2 Saturation 98.0 VBG Base Excess 9.4 Anion Gap Estim Creat Clear Calc Estimated GFR POC Glucose 138 H Random Glucose Calcium Phosphorus Magnesium Ferritin Total Bilirubin Direct Bilirubin AST ALT Alkaline Phosphatase Total Creatine Kinase C-Reactive Protein Total Protein Albumin Assessment and Plan (1) Pneumonia due to 2019-nCoV: Status: Acute (2) Diabetes type 2, uncontrolled: Status: Acute (3) Acute respiratory failure with hypoxia: Status: Acute (4) Obesity, morbid, BMI 50 or higher: Status: Acute (5) PRISCILLA treated with BiPAP: Status: Acute Plan 51 morbidly obese with diabetes, PRISCILLA on CPAP, asthma, unvaccinated for covid admitted to ICU for rescue BIPAP from covid associated acute hypoxic respiratory failure and later transitioned to high flow with improvment. Acute hypoxic respiratory failure d/t covid 19 pneumonia -continue oxygen by high flow, titrate to O2 > 90 -Continue Baricitinb 12/22 -on Luvox--started in ICU, not sure of benefit but given no harm and no pt objectio, continue for now -Robitusssin AC + Tessalon for cough Diabetes--continue Metformin, SSI, diabetic diet Obesity--weight loss adivsed, and health benefits. PRISCILLA--BiPAP or at night. Heparin for DVT proph Quality Stroke Does the patient have a stroke diagnosis?: No VTE Prior VTE?: No VTE Risk Level:: Medical - low VTE Device Contraindication: N/A - Device Ordered VTE Drug Contraindication: N/A - Med Ordered
[2021-11-14 11:16] LABS: Glucose, Whole Blood 252 mg/dL (60-115)
[2021-11-14] MEDS: guaiFEN/Codeine SF 200/20/10ML 10 ML LIQUID PO ×2 (12:22→20:28)
[2021-11-14] MEDS: Insulin Lispro 100 UNIT/ML 3 ML VIAL SUBCUT ×3 (12:22→20:25)
--- NOTE | 2021-11-14 15:04 | MHC.CM.PN ---
Female 51 Covid+ Patient continues on HF oxygen. No discharge today. DP home with resumption of [facility] and [facility]. Transportation will be provided by family.
[2021-11-14 16:09] LABS: Glucose, Whole Blood 388 mg/dL (60-115)
[2021-11-14 19:41] LABS: Glucose, Whole Blood 286 mg/dL (60-115)
[2021-11-15] VITALS (12 sets, daily range): BP systolic 111–172; BP diastolic 67–95; PULSE 56–98; RESP 18–22; TEMP 36.3–36.9; O2SAT 74–100; BMI 54.8
[2021-11-15] MEDS: guaiFEN/Codeine SF 200/20/10ML 10 ML LIQUID PO ×2 (04:25→12:32)
[2021-11-15 07:17] LABS: Venous Blood Gas Refer to POC result
[2021-11-15 07:17] LABS: VBG Base Excess 10.6 mmol/L; VBG HCO3 35 mmol/L (22-26); VBG pCO2 45 mmHg; VBG pH 7.49 (7.32-7.43); VBG pO2 81 mmHg
[2021-11-15 07:18] LABS: Basophils Percent Auto 0.1 % (0-2); Eosinophils Absolute Auto 0.1 X10*3/uL (0.0-0.4); Hematocrit 39.3 % (37.0-47.0); Hemoglobin 12.7 g/dl (12.0-16.0); Imm Gran Pct Auto 1.3 % (0.0-0.4); Lymphocytes Absolute Auto 2.1 X10*3/uL (1.2-4.9); Lymphocytes Percent Auto 25.8 % (20-40); MANUAL DIFF FLAG SCAN; Mean Corpuscular HGB Conc 32.3 g/dl (31.0-35.0); Mean Corpuscular Hemoglobin 28.9 pg (27.0-33.0); Mean Corpuscular Volume 89.3 fL (80.0-98.0); Mean Platelet Volume 9.5 fL (9.4-12.3); Monocytes Absolute Auto 0.4 X10*3/uL (0.1-1.2); Neutrophils Absolute Auto 5.3 x10*3/uL (2.0-8.3); Neutrophils Percent Auto 66.8 % (45-73); Platelet Count 285 X10*3/uL (160-400); Red Cell Distribution Width 13.6 % (11.0-16.0); SCAN SMEAR FLAG 1
[2021-11-15 07:33] LABS: Alanine Aminotransferase 32 U/L (0-31); Albumin Level 3.6 g/dL (3.5-5.0); Alkaline Phosphatase 85 U/L (39-117); Anion Gap 11 (12-20); Aspartate Amino Transferase 30 U/L (5-31); Bilirubin Direct 0.2 mg/dL (0.0-0.5); Bilirubin Total 0.6 mg/dL (0.0-1.0); Blood Urea Nitrogen 15 mg/dL (9-16); C Reactive Protein 4.27 mg/dL (< or = 0.50); Calcium 9.3 mg/dL (8.4-10.2); Carbon Dioxide 36 mmol/L (22-29); Chloride 101 mmol/L (96-108); Creatinine Clr Calc Pharmacy 113.6; Estimated Glomerular Filt Rate > 60; Glucose Random 120 mg/dL (60-115); Magnesium 1.6 mg/dL (1.6-2.6); Potassium 3.8 mmol/L (3.3-5.1); Sodium 144 mmol/L (135-145); Total Protein 6.7 g/dL (6.5-8.0)
[2021-11-15 07:47] LABS: D Dimer High Sensitivity 8689 NG/ML
[2021-11-15 07:53] LABS: Glucose, Whole Blood 126 mg/dL (60-115)
[2021-11-15 07:55] LABS: SLIDE REVIEW VERIFIED
[2021-11-15 08:14] LABS: Ferritin 264 ng/mL (10-250)
[2021-11-15] MEDS: Cholecalciferol (Vitamin D3) 25 MCG TABLET 50 MCG PO (09:45)
[2021-11-15] MEDS: dexAMETHasone sod phosphate 4 MG/ML VIAL 6 MG IVPUSH (09:45)
[2021-11-15] MEDS: fluvoxaMINE Maleate 50 MG TABLET 100 MG PO ×2 (09:45→20:22)
[2021-11-15] MEDS: Heparin Sodium,Porcine 5,000 UNIT/ML VIAL 5000 UNIT SUBCUT ×2 (09:46→20:23)
[2021-11-15] MEDS: metFORMIN HCl 1,000 MG TABLET 1000 MG PO ×2 (09:46→20:22)
--- NOTE | 2021-11-15 09:54 | HO.PM.IMPN ---
Subjective Subjective Date of Service: 11/15/21 Interval History: F/u on resp failure due to covid, feels better, cough is better Review of Systems no fever +sob, +cough no confusion Physical Exam Vital Signs: Vital Signs: Last Vital Signs Temp 97.5 F 11/15/21 07:35 Pulse 73 11/15/21 07:35 Resp 22 H 11/15/21 08:02 BP 111/86 11/15/21 07:35 Pulse Ox 96 11/15/21 07:35 Oxygen Flow Rate 15 11/10/21 20:59 BMI result Body Mass Index 54.8 Const: Other: Alert and oriented x 3 CV RRR S1S2 lungs: Dimnished gianna Abd: NT, +BS Neuro: NF, Objective Data Active Medications Albuterol Sulfate (Albuterol Sulfate (0.083%) 2.5 Mg/3 Ml Vial.Neb) 2.5 mg INHALE Q4H PRN PRN Reason: sob Albuterol Sulfate (Albuterol Sulfate 90 Mcg 8 Gm Inhaler) 1 puff INHALE Q4H PRN PRN Reason: Wheezing Albuterol/Ipratropium (Albuterol/Iprat 2.5/0.5mg 3 Ml Ampul.Neb) 3 ml INHALE Q2H PRN PRN Reason: sob Baricitinib (Baricitinib 2 Mg Tablet) 4 mg PO Q24H [facility] Stop: 11/24/21 17:01 Last Admin: 11/14/21 16:59 Dose: 4 mg Documented by: BRITTANI Benzonatate (Benzonatate 100 Mg Capsule) 100 mg PO TID PRN PRN Reason: Cough Last Admin: 11/14/21 09:11 Dose: 100 mg Documented by: RACHID Dexamethasone Sodium Phosphate (Dexamethasone Sod Phosphate 4 Mg/Ml Vial) 6 mg IVPUSH DAILY [facility] Stop: 11/20/21 09:01 Last Admin: 11/15/21 09:45 Dose: 6 mg Documented by: RYLEE Dextrose (Dextrose 50 % 25 Gm/50 Ml Syringe) 25 gm IVPUSH Q30M PRN PRN Reason: Nursing Actions in Insulin Infusion Protocol Fluvoxamine Maleate (Fluvoxamine Maleate 50 Mg Tablet) 100 mg PO Q12H [facility] Last Admin: 11/15/21 09:45 Dose: 100 mg Documented by: RYLEE Guaifenesin/Codeine Phosphate (Guaifen/Codeine Sf 200/20/10ml 10 Ml Liquid) 10 ml PO Q4H PRN PRN Reason: Cough Last Admin: 11/15/21 04:25 Dose: 10 ml Documented by: DWAIN Heparin Sodium (Porcine) (Heparin Sodium,Porcine 5,000 Unit/Ml Vial) 5,000 unit SUBCUT Q12H [facility] Last Admin: 11/15/21 09:46 Dose: 5,000 unit Documented by: RYLEE Ibuprofen (Ibuprofen 600 Mg Tablet) 600 mg PO Q6H PRN PRN Reason: Headache Last Admin: 11/14/21 09:23 Dose: 600 mg Documented by: RACHDI Insulin Human Lispro (Insulin Lispro 100 Unit/Ml 3 Ml Vial) 0 unit SUBCUT QIDACHS [facility]; Protocol Last Admin: 11/15/21 08:04 Dose: Not Given Documented by: RYLEE Non-Admin Reason: No Insulin Coverage Metformin HCl (Metformin Hcl 1,000 Mg Tablet) 1,000 mg PO BID [facility] Last Admin: 11/15/21 09:46 Dose: 1,000 mg Documented by: RYLEE Morphine Sulfate (Morphine Sulfate 2 Mg/Ml Cartridge) 1 mg IVPUSH Q4H PRN; Protocol PRN Reason: pain/SOB Last Admin: 11/12/21 21:12 Dose: 1 mg Documented by: MISSY Pharmacy Consult (Consult Rx Perform Med Rec) 1 each MISCELLANE ONCE PRN PRN Reason: Consult order Pharmacy Consult (Consult Rx Vancomycin Dosing) 1 each MISCELLANE DAILY PRN PRN Reason: Consult order Vitamin D (Cholecalciferol (Vitamin D3) 25 Mcg Tablet) 50 mcg PO DAILY [facility] Last Admin: 11/15/21 09:45 Dose: 50 mcg Documented by: RYLEE Labs CBC & Chem 7: 11/15/21 07:01 11/15/21 07:01 Labs: Laboratory Results - last 24 hr 11/14/21 11/14/21 11/14/21 10:58 16:04 19:35 MCV MCH MCHC RDW Plt Count MPV Immature Gran % (Auto) Neut % (Auto) Lymph % (Auto) [place] % (Auto) Eos % (Auto) Baso % (Auto) Lymph # (Auto) [place] # (Auto) Eos # (Auto) Baso # (Auto) Abs Immat Gran (auto) Absolute Neuts (auto) Absolute Nucleated RBC Nucleated RBC % (auto) Smear Tech's Comments D-Dimer High Sensitivty VBG pH VBG pCO2 VBG pO2 VBG HCO3 VBG O2 Saturation VBG Base Excess Anion Gap Estim Creat Clear Calc Estimated GFR POC Glucose 252 H 388 H* 286 H Random Glucose Calcium Phosphorus Magnesium Ferritin Total Bilirubin Direct Bilirubin AST ALT Alkaline Phosphatase Total Creatine Kinase C-Reactive Protein Total Protein Albumin 11/15/21 11/15/21 11/15/21 07:01 07:01 07:01 MCV 89.3 MCH 28.9 MCHC 32.3 RDW 13.6 Plt Count 285 MPV 9.5 Immature Gran % (Auto) 1.3 H Neut % (Auto) 66.8 Lymph % (Auto) 25.8 [place] % (Auto) 5.0 Eos % (Auto) 1.0 Baso % (Auto) 0.1 Lymph # (Auto) 2.1 [place] # (Auto) 0.4 Eos # (Auto) 0.1 Baso # (Auto) 0.0 Abs Immat Gran (auto) 0.10 H Absolute Neuts (auto) 5.3 Absolute Nucleated RBC 0.000 Nucleated RBC % (auto) 0.0 Smear Tech's Comments VERIFIED D-Dimer High Sensitivty 8689 VBG pH VBG pCO2 VBG pO2 VBG HCO3 VBG O2 Saturation VBG Base Excess Anion Gap 11 L Estim Creat Clear Calc 113.6 Estimated GFR > 60 POC Glucose Random Glucose 120 H Calcium 9.3 Phosphorus 4.0 Magnesium 1.6 Ferritin 264 H Total Bilirubin 0.6 Direct Bilirubin 0.2 AST 30 ALT 32 H Alkaline Phosphatase 85 Total Creatine Kinase 74 C-Reactive Protein 4.27 H Total Protein 6.7 Albumin 3.6 11/15/21 11/15/21 07:11 07:39 MCV MCH MCHC RDW Plt Count MPV Immature Gran % (Auto) Neut % (Auto) Lymph % (Auto) [place] % (Auto) Eos % (Auto) Baso % (Auto) Lymph # (Auto) [place] # (Auto) Eos # (Auto) Baso # (Auto) Abs Immat Gran (auto) Absolute Neuts (auto) Absolute Nucleated RBC Nucleated RBC % (auto) Smear Tech's Comments D-Dimer High Sensitivty VBG pH 7.49 H VBG pCO2 45 VBG pO2 81 VBG HCO3 35 H VBG O2 Saturation 94.0 VBG Base Excess 10.6 Anion Gap Estim Creat Clear Calc Estimated GFR POC Glucose 126 H Random Glucose Calcium Phosphorus Magnesium Ferritin Total Bilirubin Direct Bilirubin AST ALT Alkaline Phosphatase Total Creatine Kinase C-Reactive Protein Total Protein Albumin Assessment and Plan (1) Pneumonia due to 2019-nCoV: Status: Acute (2) Diabetes type 2, uncontrolled: Status: Acute (3) Acute respiratory failure with hypoxia: Status: Acute (4) Obesity, morbid, BMI 50 or higher: Status: Acute (5) PRISCILLA treated with BiPAP: Status: Acute Plan 51 morbidly obese with diabetes, PRISCILLA on CPAP, asthma, unvaccinated for covid admitted to ICU for rescue BIPAP from covid associated acute hypoxic respiratory failure and later transitioned to high flow with improvment. Acute hypoxic respiratory failure d/t covid 19 pneumonia -continue oxygen by high flow, titrate to O2 > 90 -Continue Baricitinb 02/21 -on Luvox--started in ICU, not sure of benefit but given no harm and no pt objectio, continue for now -Robitusssin AC + Tessalon for cough -Incentive spirometry Diabetes--continue Metformin, SSI, diabetic diet Obesity--weight loss adivsed, and aware of health benefits. PRISCILLA--BiPAP or at night. Heparin for DVT proph Quality Stroke Does the patient have a stroke diagnosis?: No VTE Prior VTE?: No VTE Risk Level:: Medical - low VTE Device Contraindication: N/A - Device Ordered VTE Drug Contraindication: N/A - Med Ordered
[2021-11-15 11:25] LABS: Glucose, Whole Blood 215 mg/dL (60-115)
[2021-11-15] MEDS: Insulin Lispro 100 UNIT/ML 3 ML VIAL SUBCUT ×3 (12:12→20:22)
[2021-11-15] MEDS: Benzonatate 100 MG CAPSULE PO (12:32)
[2021-11-15 16:07] LABS: Glucose, Whole Blood 333 mg/dL (60-115)
[2021-11-15 19:41] LABS: Glucose, Whole Blood 321 mg/dL (60-115)
[2021-11-15] MEDS: Insulin Glargine,Hum.rec.anlog 100 UNIT/ML 10 ML VIAL 10 UNIT SUBCUT (20:22)
[2021-11-16] VITALS (13 sets, daily range): BP systolic 108–146; BP diastolic 68–97; PULSE 57–98; RESP 16–28; TEMP 36.4–36.7; O2SAT 65–99; BMI 55.0
[2021-11-16 06:57] LABS: MANUAL DIFF FLAG NO
[2021-11-16 07:00] LABS: Venous Blood Gas Refer to POC result
[2021-11-16 07:00] LABS: VBG Base Excess 10.2 mmol/L; VBG HCO3 36 mmol/L (22-26); VBG pCO2 53 mmHg; VBG pH 7.43 (7.32-7.43); VBG pO2 68 mmHg
[2021-11-16 07:05] LABS: Basophils Percent Auto 0.1 % (0-2); Eosinophils Absolute Auto 0.2 X10*3/uL (0.0-0.4); Hematocrit 37.2 % (37.0-47.0); Hemoglobin 12.1 g/dl (12.0-16.0); Imm Gran Abs Auto 0.11 X10*3/uL (0.00-0.03); Imm Gran Pct Auto 1.4 % (0.0-0.4); Lymphocytes Absolute Auto 2.1 X10*3/uL (1.2-4.9); Lymphocytes Percent Auto 26.3 % (20-40); Mean Corpuscular HGB Conc 32.5 g/dl (31.0-35.0); Mean Corpuscular Hemoglobin 28.9 pg (27.0-33.0); Mean Corpuscular Volume 88.8 fL (80.0-98.0); Mean Platelet Volume 9.4 fL (9.4-12.3); Monocytes Absolute Auto 0.4 X10*3/uL (0.1-1.2); Monocytes Percent Auto 5.2 % (2-11); Neutrophils Absolute Auto 5.2 x10*3/uL (2.0-8.3); Platelet Count 254 X10*3/uL (160-400); Red Blood Count 4.19 X10*6/uL (4.20-5.50); Red Cell Distribution Width 13.5 % (11.0-16.0); White Blood Count 8.1 X10*3/uL (4.8-10.8)
[2021-11-16 07:23] LABS: Alanine Aminotransferase 32 U/L (0-31); Albumin Level 3.4 g/dL (3.5-5.0); Alkaline Phosphatase 76 U/L (39-117); Anion Gap 12 (12-20); Aspartate Amino Transferase 29 U/L (5-31); Bilirubin Direct 0.2 mg/dL (0.0-0.5); Bilirubin Total 0.6 mg/dL (0.0-1.0); Blood Urea Nitrogen 15 mg/dL (9-16); C Reactive Protein 6.13 mg/dL (< or = 0.50); Calcium 9.1 mg/dL (8.4-10.2); Carbon Dioxide 33 mmol/L (22-29); Chloride 101 mmol/L (96-108); Creatinine Clr Calc Pharmacy 118.2; Estimated Glomerular Filt Rate > 60; Glucose Random 138 mg/dL (60-115); Magnesium 1.6 mg/dL (1.6-2.6); Phosphorus 3.4 mg/dL (2.7-4.5); Potassium 3.4 mmol/L (3.3-5.1); Sodium 143 mmol/L (135-145); Total Protein 6.4 g/dL (6.5-8.0)
[2021-11-16 07:25] LABS: D Dimer High Sensitivity 8357 NG/ML
[2021-11-16 07:48] LABS: Ferritin 230 ng/mL (10-250)
[2021-11-16 08:12] LABS: Glucose, Whole Blood 139 mg/dL (60-115)
[2021-11-16] MEDS: dexAMETHasone sod phosphate 4 MG/ML VIAL 6 MG IVPUSH (09:16)
[2021-11-16] MEDS: fluvoxaMINE Maleate 50 MG TABLET 100 MG PO ×2 (09:17→20:56)
[2021-11-16] MEDS: Heparin Sodium,Porcine 5,000 UNIT/ML VIAL 5000 UNIT SUBCUT ×2 (09:17→20:55)
[2021-11-16] MEDS: Cholecalciferol (Vitamin D3) 25 MCG TABLET 50 MCG PO (09:17)
--- NOTE | 2021-11-16 10:23 | P.PNIM_ITS ---
Subjective Subjective Date of Service: 11/16/21 Interval History: F/u on resp failure due to covid, feels better, cough is better, oxgyenationi s better. But is having GI issues from metformin Review of Systems no fever +sob, +cough no confusion Physical Exam Verdana 4l Vital Signs: Verdana 4d Verdana 4d Vital Signs: Verdana 4d Verdana 4Bd Last Vital Signs Verdana 4d Etl Analyst New 4d Etl Analyst New 4d Temp 97.5 F 11/16/21 07:58 Etl Analyst New 4d Pulse 91 11/16/21 07:58 Etl Analyst New 4d Resp 20 11/16/21 08:30 BP 124/74 11/16/21 07:58 Pulse Ox 99 11/16/21 07:58 Oxygen Flow Rate 15 11/10/21 20:59 BMI result Body Mass Index 55.0 Const: Other: Alert and oriented x 3,[place] CV RRR S1S2 lungs: Dimnished gianna Abd: NT, +BS Neuro: NF, Objective Data Active Medications Albuterol Sulfate (Albuterol Sulfate (0.083%) 2.5 Mg/3 Ml Vial.Neb) 2.5 mg INHALE Q4H PRN PRN Reason: sob Albuterol Sulfate (Albuterol Sulfate 90 Mcg 8 Gm Inhaler) 1 puff INHALE Q4H PRN PRN Reason: Wheezing Albuterol/Ipratropium (Albuterol/Iprat 2.5/0.5mg 3 Ml Ampul.Neb) 3 ml INHALE Q2H PRN PRN Reason: sob Baricitinib (Baricitinib 2 Mg Tablet) 4 mg PO Q24H [facility] Stop: 11/24/21 17:01 Last Admin: 11/15/21 17:36 Dose: 4 mg Documented by: RYLEE Benzonatate (Benzonatate 100 Mg Capsule) 100 mg PO TID PRN PRN Reason: Cough Last Admin: 11/15/21 12:32 Dose: 100 mg Documented by: RYLEE Dexamethasone Sodium Phosphate (Dexamethasone Sod Phosphate 4 Mg/Ml Vial) 6 mg IVPUSH DAILY [facility] Stop: 11/20/21 09:01 Last Admin: 11/16/21 09:16 Dose: 6 mg Documented by: RYLEE Dextrose (Dextrose 50 % 25 Gm/50 Ml Syringe) 25 gm IVPUSH Q30M PRN PRN Reason: Nursing Actions in Insulin Infusion Protocol Fluvoxamine Maleate (Fluvoxamine Maleate 50 Mg Tablet) 100 mg PO Q12H [facility] Last Admin: 11/16/21 09:17 Dose: 100 mg Documented by: RYLEE Guaifenesin/Codeine Phosphate (Guaifen/Codeine Sf 200/20/10ml 10 Ml Liquid) 10 ml PO Q4H PRN PRN Reason: Cough Last Admin: 11/15/21 12:32 Dose: 10 ml Documented by: RYLEE Heparin Sodium (Porcine) (Heparin Sodium,Porcine 5,000 Unit/Ml Vial) 5,000 unit SUBCUT Q12H [facility] Last Admin: 11/16/21 09:17 Dose: 5,000 unit Documented by: RYLEE Ibuprofen (Ibuprofen 600 Mg Tablet) 600 mg PO Q6H PRN PRN Reason: Headache Last Admin: 11/14/21 09:23 Dose: 600 mg Documented by: RACHID Insulin Glargine (Insulin Glargine,Hum.Rec.Anlog 100 Unit/Ml 10 Ml Vial) 10 unit SUBCUT BEDTIME [facility] Last Admin: 11/15/21 20:22 Dose: 10 unit Documented by: YADY Insulin Human Lispro (Insulin Lispro 100 Unit/Ml 3 Ml Vial) 0 unit SUBCUT QIDACHS [facility]; Protocol Last Admin: 11/16/21 08:14 Dose: Not Given Documented by: RYLEE Non-Admin Reason: No Insulin Coverage Metformin HCl (Metformin Hcl 1,000 Mg Tablet) 1,000 mg PO BID [facility] Last Admin: 11/16/21 09:26 Dose: Not Given Documented by: RYLEE Non-Admin Reason: Patient Refused Morphine Sulfate (Morphine Sulfate 2 Mg/Ml Cartridge) 2 mg IVPUSH Q4H PRN; Protocol PRN Reason: pain/SOB Pharmacy Consult (Consult Rx Perform Med Rec) 1 each MISCELLANE ONCE PRN PRN Reason: Consult order Pharmacy Consult (Consult Rx Vancomycin Dosing) 1 each MISCELLANE DAILY PRN PRN Reason: Consult order Vitamin D (Cholecalciferol (Vitamin D3) 25 Mcg Tablet) 50 mcg PO DAILY [facility] Last Admin: 11/16/21 09:17 Dose: 50 mcg Documented by: RYLEE Labs CBC & Chem 7: 11/16/21 06:51 11/16/21 06:51 Labs: Laboratory Results - last 24 hr 11/15/21 11/15/21 11/15/21 11:22 16:00 19:35 MCV MCH MCHC RDW Plt Count MPV Immature Gran % (Auto) Neut % (Auto) Lymph % (Auto) [place] % (Auto) Eos % (Auto) Baso % (Auto) Lymph # (Auto) [place] # (Auto) Eos # (Auto) Baso # (Auto) Abs Immat Gran (auto) Absolute Neuts (auto) Absolute Nucleated RBC Nucleated RBC % (auto) D-Dimer High Sensitivty VBG pH VBG pCO2 VBG pO2 VBG HCO3 VBG O2 Saturation VBG Base Excess Anion Gap Estim Creat Clear Calc Estimated GFR POC Glucose 215 H 333 H 321 H Random Glucose Calcium Phosphorus Magnesium Ferritin Total Bilirubin Direct Bilirubin AST ALT Alkaline Phosphatase Total Creatine Kinase C-Reactive Protein Total Protein Albumin 11/16/21 11/16/21 11/16/21 06:51 06:51 06:51 MCV 88.8 MCH 28.9 MCHC 32.5 RDW 13.5 Plt Count 254 MPV 9.4 Immature Gran % (Auto) 1.4 H Neut % (Auto) 65.0 Lymph % (Auto) 26.3 [place] % (Auto) 5.2 Eos % (Auto) 2.0 Baso % (Auto) 0.1 Lymph # (Auto) 2.1 [place] # (Auto) 0.4 Eos # (Auto) 0.2 Baso # (Auto) 0.0 Abs Immat Gran (auto) 0.11 H Absolute Neuts (auto) 5.2 Absolute Nucleated RBC 0.000 Nucleated RBC % (auto) 0.0 D-Dimer High Sensitivty 8357 VBG pH VBG pCO2 VBG pO2 VBG HCO3 VBG O2 Saturation VBG Base Excess Anion Gap 12 Estim Creat Clear Calc 118.2 Estimated GFR > 60 POC Glucose Random Glucose 138 H Calcium 9.1 Phosphorus 3.4 Magnesium 1.6 Ferritin 230 Total Bilirubin 0.6 Direct Bilirubin 0.2 AST 29 ALT 32 H Alkaline Phosphatase 76 Total Creatine Kinase 51 C-Reactive Protein 6.13 H Total Protein 6.4 L Albumin 3.4 L 11/16/21 11/16/21 06:55 07:45 MCV MCH MCHC RDW Plt Count MPV Immature Gran % (Auto) Neut % (Auto) Lymph % (Auto) [place] % (Auto) Eos % (Auto) Baso % (Auto) Lymph # (Auto) [place] # (Auto) Eos # (Auto) Baso # (Auto) Abs Immat Gran (auto) Absolute Neuts (auto) Absolute Nucleated RBC Nucleated RBC % (auto) D-Dimer High Sensitivty VBG pH 7.43 VBG pCO2 53 VBG pO2 68 VBG HCO3 36 H VBG O2 Saturation 89.0 VBG Base Excess 10.2 Anion Gap Estim Creat Clear Calc Estimated GFR POC Glucose 139 H Random Glucose Calcium Phosphorus Magnesium Ferritin Total Bilirubin Direct Bilirubin AST ALT Alkaline Phosphatase Total Creatine Kinase C-Reactive Protein Total Protein Albumin Microbiology Microbiology Results: Microbiology 11/10/21 19:07 Blood Culture - Final Blood - Venous No growth after 5 days. 11/10/21 19:08 Blood Culture - Final Blood - Venous No growth after 5 days. Assessment and Plan (1) Pneumonia due to 2019-nCoV: Status: Acute (2) Diabetes type 2, uncontrolled: Status: Acute (3) Acute respiratory failure with hypoxia: Status: Acute (4) Obesity, morbid, BMI 50 or higher: Status: Acute (5) PRISCILLA treated with BiPAP: Status: Acute Plan 51 morbidly obese with diabetes, PRISCILLA on CPAP, asthma, unvaccinated for covid admitted to ICU for rescue BIPAP from covid associated acute hypoxic respiratory failure and later transitioned to high flow with improvment. Acute hypoxic respiratory failure d/t covid 19 pneumonia--making slow progress -continue oxygen by high flow, titrate to O2 > 90 -Continue Baricitinb 03/24 -on Luvox--started in ICU, not sure of benefit but given no harm and no pt objectio, continue for now -Robitusssin AC + Tessalon for cough -Incentive spirometry -proning if able, out of bed to chair Diabetes--continue Metformin, lantus added 2/5, SSI, diabetic diet Obesity--weight loss adivsed, and aware of health benefits. PRISCILLA--BiPAP or at night. Heparin for DVT proph Quality Stroke Does the patient have a stroke diagnosis?: No VTE Prior VTE?: No VTE Risk Level:: Medical - low VTE Device Contraindication: N/A - Device Ordered VTE Drug Contraindication: N/A - Med Ordered
[2021-11-16 11:30] LABS: Glucose, Whole Blood 242 mg/dL (60-115)
[2021-11-16] MEDS: Insulin Lispro 100 UNIT/ML 3 ML VIAL SUBCUT ×3 (12:16→20:58)
[2021-11-16 16:29] LABS: Glucose, Whole Blood 317 mg/dL (60-115)
[2021-11-16 20:35] LABS: Glucose, Whole Blood 245 mg/dL (60-115)
[2021-11-16] MEDS: guaiFEN/Codeine SF 200/20/10ML 10 ML LIQUID PO (20:55)
[2021-11-16] MEDS: Insulin Glargine,Hum.rec.anlog 100 UNIT/ML 10 ML VIAL 10 UNIT SUBCUT (20:58)
[2021-11-16] MEDS: metFORMIN HCl 500 MG TABLET PO (20:58)
[2021-11-17] VITALS (10 sets, daily range): BP systolic 117–142; BP diastolic 62–79; PULSE 60–624; RESP 18–24; TEMP 36.1–36.6; O2SAT 90–99; BMI 53.5
[2021-11-17 06:09] LABS: MANUAL DIFF FLAG NO
[2021-11-17 06:14] LABS: Basophils Percent Auto 0.1 % (0-2); Eosinophils Absolute Auto 0.2 X10*3/uL (0.0-0.4); Eosinophils Percent Auto 2.5 % (0-4); Hematocrit 35.6 % (37.0-47.0); Hemoglobin 11.5 g/dl (12.0-16.0); Imm Gran Abs Auto 0.14 X10*3/uL (0.00-0.03); Imm Gran Pct Auto 1.7 % (0.0-0.4); Lymphocytes Absolute Auto 2.1 X10*3/uL (1.2-4.9); Lymphocytes Percent Auto 24.3 % (20-40); Mean Corpuscular HGB Conc 32.3 g/dl (31.0-35.0); Mean Corpuscular Hemoglobin 28.7 pg (27.0-33.0); Mean Corpuscular Volume 88.8 fL (80.0-98.0); Mean Platelet Volume 9.6 fL (9.4-12.3); Monocytes Absolute Auto 0.5 X10*3/uL (0.1-1.2); Monocytes Percent Auto 5.6 % (2-11); Neutrophils Absolute Auto 5.6 x10*3/uL (2.0-8.3); Neutrophils Percent Auto 65.8 % (45-73); Platelet Count 275 X10*3/uL (160-400); Red Blood Count 4.01 X10*6/uL (4.20-5.50); Red Cell Distribution Width 13.6 % (11.0-16.0); White Blood Count 8.5 X10*3/uL (4.8-10.8)
[2021-11-17 06:14] LABS: VBG Base Excess 12.4 mmol/L; VBG HCO3 39 mmol/L (22-26); VBG pCO2 57 mmHg; VBG pH 7.43 (7.32-7.43); VBG pO2 50 mmHg
[2021-11-17 06:14] LABS: Venous Blood Gas Refer to POC result
[2021-11-17 06:46] LABS: Alanine Aminotransferase 30 U/L (0-31); Albumin Level 3.5 g/dL (3.5-5.0); Alkaline Phosphatase 70 U/L (39-117); Anion Gap 12 (12-20); Aspartate Amino Transferase 21 U/L (5-31); Bilirubin Direct 0.2 mg/dL (0.0-0.5); Bilirubin Total 0.5 mg/dL (0.0-1.0); Blood Urea Nitrogen 17 mg/dL (9-16); Calcium 9.2 mg/dL (8.4-10.2); Carbon Dioxide 34 mmol/L (22-29); Chloride 99 mmol/L (96-108); Creatinine Clr Calc Pharmacy 113.9; Estimated Glomerular Filt Rate > 60; Glucose Random 161 mg/dL (60-115); Magnesium 1.9 mg/dL (1.6-2.6); Phosphorus 2.8 mg/dL (2.7-4.5); Potassium 3.4 mmol/L (3.3-5.1); Sodium 142 mmol/L (135-145); Total Protein 6.4 g/dL (6.5-8.0)
[2021-11-17 07:08] LABS: Ferritin 215 ng/mL (10-250)
[2021-11-17 07:55] LABS: Glucose, Whole Blood 169 mg/dL (60-115)
[2021-11-17] MEDS: Insulin Lispro 100 UNIT/ML 3 ML VIAL SUBCUT ×4 (09:40→21:58)
[2021-11-17] MEDS: Heparin Sodium,Porcine 5,000 UNIT/ML VIAL 5000 UNIT SUBCUT ×2 (09:41→21:57)
[2021-11-17] MEDS: Cholecalciferol (Vitamin D3) 25 MCG TABLET 50 MCG PO (09:47)
[2021-11-17] MEDS: metFORMIN HCl 500 MG TABLET PO ×2 (09:47→21:57)
[2021-11-17] MEDS: fluvoxaMINE Maleate 50 MG TABLET 100 MG PO ×2 (09:47→21:57)
[2021-11-17] MEDS: dexAMETHasone sod phosphate 4 MG/ML VIAL 6 MG IVPUSH (09:48)
[2021-11-17 11:10] LABS: Glucose, Whole Blood 276 mg/dL (60-115)
--- NOTE | 2021-11-17 11:21 | HO.PM.IMPN ---
Subjective Subjective Date of Service: 11/17/21 Interval History: F/u on resp failure due to covid, feels better, cough is better, oxgyenationi s better. She feels better today Review of Systems no fever +sob, +cough no confusion Physical Exam Vital Signs: Vital Signs: Last Vital Signs Temp 97.0 F 11/17/21 08:00 Pulse 61 11/17/21 08:00 Resp 20 11/17/21 10:42 BP 135/79 11/17/21 08:00 Pulse Ox 99 11/17/21 08:00 Oxygen Flow Rate 15 11/10/21 20:59 BMI result Body Mass Index 53.5 Const: Other: Alert and oriented x 3,[place] CV RRR S1S2 lungs: Dimnished gianna Abd: NT, +BS Neuro: NF, Objective Data Active Medications Albuterol Sulfate (Albuterol Sulfate (0.083%) 2.5 Mg/3 Ml Vial.Neb) 2.5 mg INHALE Q4H PRN PRN Reason: sob Albuterol Sulfate (Albuterol Sulfate 90 Mcg 8 Gm Inhaler) 1 puff INHALE Q4H PRN PRN Reason: Wheezing Albuterol/Ipratropium (Albuterol/Iprat 2.5/0.5mg 3 Ml Ampul.Neb) 3 ml INHALE Q2H PRN PRN Reason: sob Baricitinib (Baricitinib 2 Mg Tablet) 4 mg PO Q24H [facility] Stop: 11/24/21 17:01 Last Admin: 11/16/21 17:49 Dose: 4 mg Documented by: RYLEE Benzonatate (Benzonatate 100 Mg Capsule) 100 mg PO TID PRN PRN Reason: Cough Last Admin: 11/15/21 12:32 Dose: 100 mg Documented by: RYLEE Dexamethasone Sodium Phosphate (Dexamethasone Sod Phosphate 4 Mg/Ml Vial) 6 mg IVPUSH DAILY [facility] Stop: 11/20/21 09:01 Last Admin: 11/17/21 09:48 Dose: 6 mg Documented by: RIGOBERTO Dextrose (Dextrose 50 % 25 Gm/50 Ml Syringe) 25 gm IVPUSH Q30M PRN PRN Reason: Nursing Actions in Insulin Infusion Protocol Fluvoxamine Maleate (Fluvoxamine Maleate 50 Mg Tablet) 100 mg PO Q12H [facility] Last Admin: 11/17/21 09:47 Dose: 100 mg Documented by: RIGOBERTO Guaifenesin/Codeine Phosphate (Guaifen/Codeine Sf 200/20/10ml 10 Ml Liquid) 10 ml PO Q4H PRN PRN Reason: Cough Last Admin: 11/16/21 20:55 Dose: 10 ml Documented by: OZZIE Heparin Sodium (Porcine) (Heparin Sodium,Porcine 5,000 Unit/Ml Vial) 5,000 unit SUBCUT Q12H [facility] Last Admin: 11/17/21 09:41 Dose: 5,000 unit Documented by: RIGOBERTO Ibuprofen (Ibuprofen 600 Mg Tablet) 600 mg PO Q6H PRN PRN Reason: Headache Last Admin: 11/14/21 09:23 Dose: 600 mg Documented by: RACHID Insulin Glargine (Insulin Glargine,Hum.Rec.Anlog 100 Unit/Ml 10 Ml Vial) 10 unit SUBCUT BEDTIME [facility] Last Admin: 11/16/21 20:58 Dose: 10 unit Documented by: OZZIE Insulin Human Lispro (Insulin Lispro 100 Unit/Ml 3 Ml Vial) 0 unit SUBCUT QIDACHS [facility]; Protocol Last Admin: 11/17/21 09:40 Dose: 2 unit Documented by: RIGOBERTO Metformin HCl (Metformin Hcl 500 Mg Tablet) 500 mg PO BID [facility] Last Admin: 11/17/21 09:47 Dose: 500 mg Documented by: RIGOBERTO Morphine Sulfate (Morphine Sulfate 2 Mg/Ml Cartridge) 2 mg IVPUSH Q4H PRN; Protocol PRN Reason: pain/SOB Pharmacy Consult (Consult Rx Perform Med Rec) 1 each MISCELLANE ONCE PRN PRN Reason: Consult order Pharmacy Consult (Consult Rx Vancomycin Dosing) 1 each MISCELLANE DAILY PRN PRN Reason: Consult order Vitamin D (Cholecalciferol (Vitamin D3) 25 Mcg Tablet) 50 mcg PO DAILY [facility] Last Admin: 11/17/21 09:47 Dose: 50 mcg Documented by: RIGOBERTO Labs CBC & Chem 7: 11/17/21 05:58 11/17/21 05:58 Labs: Laboratory Results - last 24 hr 11/16/21 11/16/21 11/16/21 11:05 16:23 20:26 MCV MCH MCHC RDW Plt Count MPV Immature Gran % (Auto) Neut % (Auto) Lymph % (Auto) [place] % (Auto) Eos % (Auto) Baso % (Auto) Lymph # (Auto) [place] # (Auto) Eos # (Auto) Baso # (Auto) Abs Immat Gran (auto) Absolute Neuts (auto) Absolute Nucleated RBC Nucleated RBC % (auto) VBG pH VBG pCO2 VBG pO2 VBG HCO3 VBG O2 Saturation VBG Base Excess Anion Gap Estim Creat Clear Calc Estimated GFR POC Glucose 242 H 317 H 245 H Random Glucose Calcium Phosphorus Magnesium Ferritin Total Bilirubin Direct Bilirubin AST ALT Alkaline Phosphatase Total Creatine Kinase Total Protein Albumin 11/17/21 11/17/21 11/17/21 05:58 05:58 06:07 MCV 88.8 MCH 28.7 MCHC 32.3 RDW 13.6 Plt Count 275 MPV 9.6 Immature Gran % (Auto) 1.7 H Neut % (Auto) 65.8 Lymph % (Auto) 24.3 [place] % (Auto) 5.6 Eos % (Auto) 2.5 Baso % (Auto) 0.1 Lymph # (Auto) 2.1 [place] # (Auto) 0.5 Eos # (Auto) 0.2 Baso # (Auto) 0.0 Abs Immat Gran (auto) 0.14 H Absolute Neuts (auto) 5.6 Absolute Nucleated RBC 0.000 Nucleated RBC % (auto) 0.0 VBG pH 7.43 VBG pCO2 57 VBG pO2 50 VBG HCO3 39 H VBG O2 Saturation 76.0 VBG Base Excess 12.4 Anion Gap 12 Estim Creat Clear Calc 113.9 Estimated GFR > 60 POC Glucose Random Glucose 161 H Calcium 9.2 Phosphorus 2.8 Magnesium 1.9 Ferritin 215 Total Bilirubin 0.5 Direct Bilirubin 0.2 AST 21 ALT 30 Alkaline Phosphatase 70 Total Creatine Kinase 41 Total Protein 6.4 L Albumin 3.5 11/17/21 11/17/21 07:51 10:59 MCV MCH MCHC RDW Plt Count MPV Immature Gran % (Auto) Neut % (Auto) Lymph % (Auto) [place] % (Auto) Eos % (Auto) Baso % (Auto) Lymph # (Auto) [place] # (Auto) Eos # (Auto) Baso # (Auto) Abs Immat Gran (auto) Absolute Neuts (auto) Absolute Nucleated RBC Nucleated RBC % (auto) VBG pH VBG pCO2 VBG pO2 VBG HCO3 VBG O2 Saturation VBG Base Excess Anion Gap Estim Creat Clear Calc Estimated GFR POC Glucose 169 H 276 H Random Glucose Calcium Phosphorus Magnesium Ferritin Total Bilirubin Direct Bilirubin AST ALT Alkaline Phosphatase Total Creatine Kinase Total Protein Albumin Assessment and Plan (1) Pneumonia due to 2019-nCoV: Status: Acute (2) Diabetes type 2, uncontrolled: Status: Acute (3) Acute respiratory failure with hypoxia: Status: Acute (4) Obesity, morbid, BMI 50 or higher: Status: Acute (5) PRISCILLA treated with BiPAP: Status: Acute Plan 51 morbidly obese with diabetes, PRICSILLA on CPAP, asthma, unvaccinated for covid admitted to ICU for rescue BIPAP from covid associated acute hypoxic respiratory failure and later transitioned to high flow with improvment. Acute hypoxic respiratory failure d/t covid 19 pneumonia--making slow progress -continue oxygen by high flow, titrate to O2 > 90 -Continue Baricitinb 04/23 -on Luvox--started in ICU, not sure of benefit but given no harm and no pt objectio, continue for now -Leightonin AC + Tessalon for cough -Incentive spirometry -proning if able, out of bed to chair Diabetes--continue Metformin 500 bid, lantus added 2/5, SSI, diabetic diet Obesity--weight loss adivsed, and aware of health benefits. PRISCILLA--BiPAP or at night. Heparin for DVT proph Quality Stroke Does the patient have a stroke diagnosis?: No VTE Prior VTE?: No VTE Risk Level:: Medical - low VTE Device Contraindication: N/A - Device Ordered VTE Drug Contraindication: N/A - Med Ordered
--- NOTE | 2021-11-17 12:47 | MHC.CM.PN ---
Per ROUNDS discussion, Patient is not yet medically cleared for dc (High Flow O2); Home/resume [employer] VS STR pending PT eval is the plan and CM will continue to follow.
[2021-11-17 16:42] LABS: Glucose, Whole Blood 272 mg/dL (60-115)
[2021-11-17] MEDS: guaiFEN/Codeine SF 200/20/10ML 10 ML LIQUID PO (17:24)
[2021-11-17 21:02] LABS: Glucose, Whole Blood 248 mg/dL (60-115)
[2021-11-17] MEDS: Insulin Glargine,Hum.rec.anlog 100 UNIT/ML 10 ML VIAL 10 UNIT SUBCUT (21:57)
[2021-11-18] VITALS (7 sets, daily range): BP systolic 127–151; BP diastolic 61–81; PULSE 55–87; RESP 16–26; TEMP 36–37.2; O2SAT 87–95
[2021-11-18] MEDS: guaiFEN/Codeine SF 200/20/10ML 10 ML LIQUID PO ×2 (00:25→21:52)
[2021-11-18 07:26] LABS: Glucose, Whole Blood 148 mg/dL (60-115)
[2021-11-18] MEDS: Heparin Sodium,Porcine 5,000 UNIT/ML VIAL 5000 UNIT SUBCUT ×2 (09:44→21:45)
[2021-11-18] MEDS: metFORMIN HCl 500 MG TABLET PO ×2 (09:44→21:44)
[2021-11-18] MEDS: Benzonatate 100 MG CAPSULE PO ×3 (09:44→21:44)
[2021-11-18] MEDS: Cholecalciferol (Vitamin D3) 25 MCG TABLET 50 MCG PO (09:44)
[2021-11-18] MEDS: dexAMETHasone sod phosphate 4 MG/ML VIAL 6 MG IVPUSH (09:45)
[2021-11-18] MEDS: fluvoxaMINE Maleate 50 MG TABLET 100 MG PO ×2 (09:45→21:45)
[2021-11-18 11:03] LABS: Glucose, Whole Blood 221 mg/dL (60-115)
[2021-11-18] MEDS: Insulin Lispro 100 UNIT/ML 3 ML VIAL SUBCUT ×3 (12:01→21:45)
--- NOTE | 2021-11-18 12:58 | HO.PM.IMPN ---
Subjective Subjective Date of Service: 11/18/21 Interval History: complaining of shortness of breath and productive cough bringing up yellow colored phlegm, no fevers no chills has been out of bed to chair using incentive spirometry, no other acute issues overnight, tolerating diet no nausea, no vomiting, no diarrhea. Review of Systems Review of Systems: Yes all other systems are reviewed and are negative Physical Exam Vital Signs: Vital Signs: Last Vital Signs Temp 98.8 F 11/18/21 11:35 Pulse 77 11/18/21 11:35 Resp 20 11/18/21 11:35 BP 142/72 H 11/18/21 11:35 Pulse Ox 95 11/18/21 11:35 Oxygen Flow Rate 15 11/10/21 20:59 BMI result Body Mass Index 53.5 Const: Other: General no acute distress , talking in full sentences. Neck supple no JVD. CVS regular rate rhythm, Respiratory diminished breath sounds, no respiratory distress, no wheeze, no rhonchi. Gastrointestinal abdomen soft, nontender, bowel sounds audible, Extremities no edema. Neuro nonfocal Skin no rash appropriate affect Objective Data Active Medications Albuterol Sulfate (Albuterol Sulfate 90 Mcg 8 Gm Inhaler) 1 puff INHALE Q4H PRN PRN Reason: Wheezing Baricitinib (Baricitinib 2 Mg Tablet) 4 mg PO Q24H [facility] Stop: 11/24/21 17:01 Last Admin: 11/17/21 16:37 Dose: 4 mg Documented by: BRITTANI Benzonatate (Benzonatate 100 Mg Capsule) 100 mg PO TID PRN PRN Reason: Cough Last Admin: 11/18/21 09:44 Dose: 100 mg Documented by: MARIELOS Dexamethasone Sodium Phosphate (Dexamethasone Sod Phosphate 4 Mg/Ml Vial) 6 mg IVPUSH DAILY [facility] Stop: 11/20/21 09:01 Last Admin: 11/18/21 09:45 Dose: 6 mg Documented by: MARIELOS Dextrose (Dextrose 50 % 25 Gm/50 Ml Syringe) 25 gm IVPUSH Q30M PRN PRN Reason: Nursing Actions in Insulin Infusion Protocol Fluvoxamine Maleate (Fluvoxamine Maleate 50 Mg Tablet) 100 mg PO Q12H [facility] Last Admin: 11/18/21 09:45 Dose: 100 mg Documented by: MARIELOS Guaifenesin/Codeine Phosphate (Guaifen/Codeine Sf 200/20/10ml 10 Ml Liquid) 10 ml PO Q4H PRN PRN Reason: Cough Last Admin: 11/18/21 00:25 Dose: 10 ml Documented by: LY Heparin Sodium (Porcine) (Heparin Sodium,Porcine 5,000 Unit/Ml Vial) 5,000 unit SUBCUT Q12H [facility] Last Admin: 11/18/21 09:44 Dose: 5,000 unit Documented by: MARIELOS Ibuprofen (Ibuprofen 600 Mg Tablet) 600 mg PO Q6H PRN PRN Reason: Headache Last Admin: 11/14/21 09:23 Dose: 600 mg Documented by: RACHID Insulin Glargine (Insulin Glargine,Hum.Rec.Anlog 100 Unit/Ml 10 Ml Vial) 10 unit SUBCUT BEDTIME [facility] Last Admin: 11/17/21 21:57 Dose: 10 unit Documented by: BRITTANI Insulin Human Lispro (Insulin Lispro 100 Unit/Ml 3 Ml Vial) 0 unit SUBCUT QIDACHS [facility]; Protocol Last Admin: 11/18/21 12:01 Dose: 4 unit Documented by: MARIELOS Metformin HCl (Metformin Hcl 500 Mg Tablet) 500 mg PO BID [facility] Last Admin: 11/18/21 09:44 Dose: 500 mg Documented by: MARIELOS Morphine Sulfate (Morphine Sulfate 2 Mg/Ml Cartridge) 2 mg IVPUSH Q4H PRN; Protocol PRN Reason: pain/SOB Pharmacy Consult (Consult Rx Perform Med Rec) 1 each MISCELLANE ONCE PRN PRN Reason: Consult order Vitamin D (Cholecalciferol (Vitamin D3) 25 Mcg Tablet) 50 mcg PO DAILY [facility] Last Admin: 11/18/21 09:44 Dose: 50 mcg Documented by: MARIELOS Labs CBC & Chem 7: 11/17/21 05:58 11/17/21 05:58 Labs: Laboratory Results - last 24 hr 11/17/21 11/17/21 11/18/21 16:31 20:49 07:22 POC Glucose 272 H 248 H 148 H 11/18/21 10:59 POC Glucose 221 H Assessment and Plan (1) Pneumonia due to 2019-nCoV: Status: Acute (2) Diabetes type 2, uncontrolled: Status: Acute (3) Acute respiratory failure with hypoxia: Status: Acute (4) Obesity, morbid, BMI 50 or higher: Status: Acute (5) PRISCILLA treated with BiPAP: Status: Acute Plan 51 morbidly obese with diabetes, PRISCILLA on CPAP, asthma, unvaccinated for covid admitted to ICU for rescue BIPAP from covid associated acute hypoxic respiratory failure and later transitioned to high flow with improvment. Acute hypoxic respiratory failure d/t covid 19 pneumonia slowly improving, decreased oxygen requirement currently on 10 L Oxymizer, wean as tolerated- Continue Baricitinb 05/24, IV dexamethasone 11/11 thru 11/20 on Luvox--started in ICU day 8, continue for now continue Robitusssin AC + Tessalon for cough, vitamin-D will encourage incentive spirometry, proning and out of bed to chair. Diabetes-- uncontrolled blood sugars likely due to steroids,continue Metformin 500 bid, lantus 10 units, adjust SSI, continuebdiabetic diet Obesity--weight loss adivsed, since contributing to diabetes and obstructive sleep apnea. PRISCILLA--BiPAP at night. Heparin for DVT proph Quality Stroke Does the patient have a stroke diagnosis?: No VTE Prior VTE?: No VTE Risk Level:: Medical - low VTE Device Contraindication: N/A - Device Ordered VTE Drug Contraindication: N/A - Med Ordered
[2021-11-18 15:52] LABS: Glucose, Whole Blood 347 mg/dL (60-115)
[2021-11-18 20:10] LABS: Glucose, Whole Blood 333 mg/dL (60-115)
[2021-11-18] MEDS: Insulin Glargine,Hum.rec.anlog 100 UNIT/ML 10 ML VIAL 10 UNIT SUBCUT (21:45)
[2021-11-19] VITALS (8 sets, daily range): BP systolic 123–146; BP diastolic 63–84; PULSE 55–76; RESP 18–24; TEMP 35.3–36.7; O2SAT 93–99; BMI 54.1
[2021-11-19 07:39] LABS: Glucose, Whole Blood 152 mg/dL (60-115)
[2021-11-19] MEDS: Insulin Lispro 100 UNIT/ML 3 ML VIAL SUBCUT ×4 (08:25→22:13)
[2021-11-19] MEDS: dexAMETHasone sod phosphate 4 MG/ML VIAL 6 MG IVPUSH (08:51)
[2021-11-19] MEDS: Cholecalciferol (Vitamin D3) 25 MCG TABLET 50 MCG PO (08:52)
[2021-11-19] MEDS: Benzonatate 100 MG CAPSULE PO ×3 (08:53→22:12)
[2021-11-19] MEDS: Heparin Sodium,Porcine 5,000 UNIT/ML VIAL 5000 UNIT SUBCUT ×2 (08:53→22:12)
[2021-11-19] MEDS: metFORMIN HCl 500 MG TABLET PO ×2 (08:53→22:12)
[2021-11-19] MEDS: fluvoxaMINE Maleate 50 MG TABLET 100 MG PO ×2 (08:53→22:12)
[2021-11-19 11:24] LABS: Glucose, Whole Blood 189 mg/dL (60-115)
--- NOTE | 2021-11-19 11:56 | HO.PM.IMPN ---
Subjective Subjective Date of Service: 11/19/21 Interval History: feeling better still complaining of shortness of breath and cough, oxygen requirement decreased to 6 L by nasal cannula, no acute overnight events no fevers, no chills, no headache, no dizziness Physical Exam Vital Signs: Vital Signs: Last Vital Signs Temp 97.9 F 11/19/21 11:08 Pulse 76 11/19/21 11:08 Resp 20 11/19/21 11:08 BP 146/84 H 11/19/21 11:08 Pulse Ox 93 11/19/21 11:08 Oxygen Flow Rate 15 11/10/21 20:59 BMI result Body Mass Index 54.1 Const: Other: General? no acute distress , talking in full sentences.? Neck? supple no JVD. CVS? regular rate rhythm, Respiratory? diminished breath sounds, no respiratory distress, no wheeze, no rhonchi. Gastrointestinal abdomen soft, nontender, bowel sounds audible, Extremities no edema. Neuro nonfocal Skin no rash appropriate affect Objective Data Active Medications Albuterol Sulfate (Albuterol Sulfate 90 Mcg 8 Gm Inhaler) 1 puff INHALE Q4H PRN PRN Reason: Wheezing Baricitinib (Baricitinib 2 Mg Tablet) 4 mg PO Q24H [facility] Stop: 11/24/21 17:01 Last Admin: 11/18/21 16:49 Dose: 4 mg Documented by: MARIELOS Benzonatate (Benzonatate 100 Mg Capsule) 100 mg PO TID [facility] Last Admin: 11/19/21 08:53 Dose: 100 mg Documented by: RIGOBERTO Dexamethasone Sodium Phosphate (Dexamethasone Sod Phosphate 4 Mg/Ml Vial) 6 mg IVPUSH DAILY [facility] Stop: 11/20/21 09:01 Last Admin: 11/19/21 08:51 Dose: 6 mg Documented by: RIGOBERTO Dextrose (Dextrose 50 % 25 Gm/50 Ml Syringe) 25 gm IVPUSH Q30M PRN PRN Reason: Nursing Actions in Insulin Infusion Protocol Fluvoxamine Maleate (Fluvoxamine Maleate 50 Mg Tablet) 100 mg PO Q12H [facility] Last Admin: 11/19/21 08:53 Dose: 100 mg Documented by: RIGOBERTO Guaifenesin/Codeine Phosphate (Guaifen/Codeine Sf 200/20/10ml 10 Ml Liquid) 10 ml PO Q4H PRN PRN Reason: Cough Last Admin: 11/18/21 21:52 Dose: 10 ml Documented by: RADHA Heparin Sodium (Porcine) (Heparin Sodium,Porcine 5,000 Unit/Ml Vial) 5,000 unit SUBCUT Q12H [facility] Last Admin: 11/19/21 08:53 Dose: 5,000 unit Documented by: RIGOBERTO Ibuprofen (Ibuprofen 600 Mg Tablet) 600 mg PO Q6H PRN PRN Reason: Headache Last Admin: 11/14/21 09:23 Dose: 600 mg Documented by: RACHID Insulin Glargine (Insulin Glargine,Hum.Rec.Anlog 100 Unit/Ml 10 Ml Vial) 10 unit SUBCUT BEDTIME [facility] Last Admin: 11/18/21 21:45 Dose: 10 unit Documented by: RADHA Insulin Human Lispro (Insulin Lispro 100 Unit/Ml 3 Ml Vial) 0 unit SUBCUT QIDACHS [facility]; Protocol Last Admin: 11/19/21 11:41 Dose: 4 unit Documented by: RIGOBERTO Metformin HCl (Metformin Hcl 500 Mg Tablet) 500 mg PO BID [facility] Last Admin: 11/19/21 08:53 Dose: 500 mg Documented by: RIGOBERTO Morphine Sulfate (Morphine Sulfate 2 Mg/Ml Cartridge) 2 mg IVPUSH Q4H PRN; Protocol PRN Reason: pain/SOB Pharmacy Consult (Consult Rx Perform Med Rec) 1 each MISCELLANE ONCE PRN PRN Reason: Consult order Vitamin D (Cholecalciferol (Vitamin D3) 25 Mcg Tablet) 50 mcg PO DAILY [facility] Last Admin: 11/19/21 08:52 Dose: 50 mcg Documented by: RIGOBERTO Labs CBC & Chem 7: 11/17/21 05:58 11/17/21 05:58 Labs: Laboratory Results - last 24 hr 11/18/21 11/18/21 11/19/21 15:44 20:00 07:36 POC Glucose 347 H 333 H 152 H 11/19/21 11:16 POC Glucose 189 H Assessment and Plan (1) Pneumonia due to 2019-nCoV: Status: Acute (2) Diabetes type 2, uncontrolled: Status: Acute (3) Acute respiratory failure with hypoxia: Status: Acute (4) Obesity, morbid, BMI 50 or higher: Status: Acute (5) PRISCILLA treated with BiPAP: Status: Acute Plan 51 morbidly obese with diabetes, PRISCILLA on CPAP, asthma, unvaccinated for covid admitted to ICU for rescue BIPAP from covid associated acute hypoxic respiratory failure and later transitioned to high flow with improvment. Acute hypoxic respiratory failure d/t covid 19 pneumonia Clinically doing better, decreased oxygen requirement currently on 6 L Oxymizer, will wean down to 5 L Continue Baricitinb 06/24, IV dexamethasone 06/20 on Luvox--started in ICU day 9, continue for now continue Robitusssin AC + Tessalon for cough, vitamin-D encourage incentive spirometry, proning and out of bed to chair. Diabetes-- better blood sugar control since sliding scale adjusted, continue Metformin 500 bid, lantus 10 units, and diabetic diet Obesity--weight loss adivsed, since contributing to diabetes and obstructive sleep apnea. PRISCILLA--BiPAP at night. Heparin for DVT proph Quality Stroke Does the patient have a stroke diagnosis?: No VTE Prior VTE?: No VTE Risk Level:: Medical - low VTE Device Contraindication: N/A - Device Ordered VTE Drug Contraindication: N/A - Med Ordered
[2021-11-19 16:24] LABS: Glucose, Whole Blood 289 mg/dL (60-115)
[2021-11-19 20:24] LABS: Glucose, Whole Blood 284 mg/dL (60-115)
[2021-11-19] MEDS: Insulin Glargine,Hum.rec.anlog 100 UNIT/ML 10 ML VIAL 10 UNIT SUBCUT (22:12)
[2021-11-20] VITALS (10 sets, daily range): BP systolic 118–141; BP diastolic 54–100; PULSE 52–121; RESP 15–28; TEMP 36–36.8; O2SAT 83–98; BMI 55.0
[2021-11-20 07:41] LABS: Glucose, Whole Blood 114 mg/dL (60-115)
[2021-11-20] MEDS: metFORMIN HCl 500 MG TABLET PO ×2 (09:08→21:05)
[2021-11-20] MEDS: fluvoxaMINE Maleate 50 MG TABLET 100 MG PO ×2 (09:08→21:05)
[2021-11-20] MEDS: Heparin Sodium,Porcine 5,000 UNIT/ML VIAL 5000 UNIT SUBCUT ×2 (09:08→21:06)
[2021-11-20] MEDS: Benzonatate 100 MG CAPSULE PO ×3 (09:08→21:06)
[2021-11-20] MEDS: dexAMETHasone sod phosphate 4 MG/ML VIAL 6 MG IVPUSH (09:08)
[2021-11-20] MEDS: Cholecalciferol (Vitamin D3) 25 MCG TABLET 50 MCG PO (09:08)
[2021-11-20 11:23] LABS: Glucose, Whole Blood 227 mg/dL (60-115)
[2021-11-20] MEDS: Insulin Lispro 100 UNIT/ML 3 ML VIAL SUBCUT ×3 (11:43→21:06)
--- NOTE | 2021-11-20 11:57 | PC.RT ---
home O2 eval done per MD order. Pt unable to maintain adequate SpO2 with ambulation on 6L oxymizer. MD and RN aware Agustín Cheema, RT
--- NOTE | 2021-11-20 13:01 | HO.PM.IMPN ---
Subjective Subjective Date of Service: 11/20/21 Interval History: feeling better this morning less cough and short of breath, Denies fever, no chills, tolerating diet, no overnight events. Review of Systems [employer] no headache, no dizziness GI no nausea, no vomiting no urinary urgency, no frequency Review of Systems: Yes all other systems are reviewed and are negative Physical Exam Vital Signs: Vital Signs: Last Vital Signs Temp 97.5 F 11/20/21 10:57 Pulse 62 11/20/21 10:57 Resp 18 11/20/21 10:57 BP 134/75 11/20/21 10:57 Pulse Ox 92 11/20/21 10:57 Oxygen Flow Rate 15 11/10/21 20:59 BMI result Body Mass Index 55.0 Const: Other: General? no acute distress , talking in full sentences .? Neck? supple no JVD. CVS? regular rate rhythm, Resp iratory? diminishe d breath sounds, n o respiratory dist ress, no wheeze, n o rhonchi. Gastroi ntestinal abdomen soft, nontender, b owel sounds audibl e, Extremities no edema. Neuro nonfo destin Skin no rash a ppropriate affect Objective Data Active Medications Albuterol Sulfate (Albuterol Sulfate 90 Mcg 8 Gm Inhaler) 1 puff INHALE Q4H PRN PRN Reason: Wheezing Baricitinib (Baricitinib 2 Mg Tablet) 4 mg PO Q24H [facility] Stop: 11/24/21 17:01 Last Admin: 11/19/21 16:30 Dose: 4 mg Documented by: BRITTANI Benzonatate (Benzonatate 100 Mg Capsule) 100 mg PO TID [facility] Last Admin: 11/20/21 09:08 Dose: 100 mg Documented by: RONDA Dextrose (Dextrose 50 % 25 Gm/50 Ml Syringe) 25 gm IVPUSH Q30M PRN PRN Reason: Nursing Actions in Insulin Infusion Protocol Fluvoxamine Maleate (Fluvoxamine Maleate 50 Mg Tablet) 100 mg PO Q12H [facility] Last Admin: 11/20/21 09:08 Dose: 100 mg Documented by: RONDA Guaifenesin/Codeine Phosphate (Guaifen/Codeine Sf 200/20/10ml 10 Ml Liquid) 10 ml PO Q4H PRN PRN Reason: Cough Last Admin: 11/18/21 21:52 Dose: 10 ml Documented by: RADHA Heparin Sodium (Porcine) (Heparin Sodium,Porcine 5,000 Unit/Ml Vial) 5,000 unit SUBCUT Q12H [facility] Last Admin: 11/20/21 09:08 Dose: 5,000 unit Documented by: RONDA Ibuprofen (Ibuprofen 600 Mg Tablet) 600 mg PO Q6H PRN PRN Reason: Headache Last Admin: 11/14/21 09:23 Dose: 600 mg Documented by: RACHID Insulin Glargine (Insulin Glargine,Hum.Rec.Anlog 100 Unit/Ml 10 Ml Vial) 10 unit SUBCUT BEDTIME [facility] Last Admin: 11/19/21 22:12 Dose: 10 unit Documented by: BRITTANI Insulin Human Lispro (Insulin Lispro 100 Unit/Ml 3 Ml Vial) 0 unit SUBCUT QIDACHS [facility]; Protocol Last Admin: 11/20/21 11:43 Dose: 6 unit Documented by: RONDA Metformin HCl (Metformin Hcl 500 Mg Tablet) 500 mg PO BID [facility] Last Admin: 11/20/21 09:08 Dose: 500 mg Documented by: RONDA Morphine Sulfate (Morphine Sulfate 2 Mg/Ml Cartridge) 2 mg IVPUSH Q4H PRN; Protocol PRN Reason: pain/SOB Pharmacy Consult (Consult Rx Perform Med Rec) 1 each MISCELLANE ONCE PRN PRN Reason: Consult order Vitamin D (Cholecalciferol (Vitamin D3) 25 Mcg Tablet) 50 mcg PO DAILY [facility] Last Admin: 11/20/21 09:08 Dose: 50 mcg Documented by: RONDA Labs CBC & Chem 7: 11/17/21 05:58 11/17/21 05:58 Labs: Laboratory Results - last 24 hr 11/19/21 11/19/21 11/20/21 16:10 20:17 07:05 POC Glucose 289 H 284 H 114 11/20/21 11:16 POC Glucose 227 H Assessment and Plan (1) Pneumonia due to 2019-nCoV: Status: Acute (2) Diabetes type 2, uncontrolled: Status: Acute (3) Acute respiratory failure with hypoxia: Status: Acute (4) Obesity, morbid, BMI 50 or higher: Status: Acute (5) PRISCILLA treated with BiPAP: Status: Acute Plan 51 morbidly obese with diabetes, PRISCILLA on CPAP, asthma, unvaccinated for covid admitted to ICU for rescue BIPAP from covid associated acute hypoxic respiratory failure and later transitioned to high flow with improvment. Acute hypoxic respiratory failure d/t covid 19 pneumonia Clinically doing better, decreased oxygen requirement currently on 3 L nasal cannula at rest on Baricitinb 07/24,s/p IV dexamethasone day 10 ,will add iv solu 40mg q12 on Luvox--started in ICU day 10, continue for now continue Robitusssin AC + Tessalon for cough, vitamin-D obtain home O2 eval patient noted to have finger oximetry 81% on 6 L Oxymizer with ambulation heart rate up to 121 will continue out of bed to chair and ambulation with Oxymizer, encourage incentive spirometry. Diabetes-- Elevated blood sugars likely due to steroids, will adjust insulin sliding scale , continue Metformin 500 bid, lantus 10 units, and diabetic diet Obesity--weight loss adivsed, since contributing to diabetes and obstructive sleep apnea. PRISCILLA--BiPAP at night. Heparin for DVT proph Quality Stroke Does the patient have a stroke diagnosis?: No VTE Prior VTE?: No VTE Risk Level:: Medical - low VTE Device Contraindication: N/A - Device Ordered VTE Drug Contraindication: N/A - Med Ordered
[2021-11-20] MEDS: guaiFEN/Codeine SF 200/20/10ML 10 ML LIQUID PO ×2 (14:05→21:33)
[2021-11-20] MEDS: Ibuprofen 600 MG TABLET PO (14:06)
--- NOTE | 2021-11-20 15:36 | PC.NURSE ---
Pt alert and oriented x3. C/O ^/10 Headache and muscular chest pain. PRN Guafensin and Motrin given with good effect. Pt did a home O2 eval and failed. Pt is on 2L NC and with ambulation she required 6L of O2. Pt will therefore not discharged today.
[2021-11-20 16:44] LABS: Glucose, Whole Blood 351 mg/dL (60-115)
[2021-11-20 20:39] LABS: Glucose, Whole Blood 306 mg/dL (60-115)
[2021-11-20] MEDS: Insulin Glargine,Hum.rec.anlog 100 UNIT/ML 10 ML VIAL 10 UNIT SUBCUT (21:06)
[2021-11-21] VITALS (8 sets, daily range): BP systolic 114–153; BP diastolic 65–85; PULSE 50–95; RESP 18–39; TEMP 36.6–36.9; O2SAT 92–99; BMI 55.6
[2021-11-21 07:02] LABS: Hematocrit 35.8 % (37.0-47.0); Hemoglobin 11.6 g/dl (12.0-16.0); Mean Corpuscular HGB Conc 32.4 g/dl (31.0-35.0); Mean Corpuscular Hemoglobin 28.8 pg (27.0-33.0); Mean Corpuscular Volume 88.8 fL (80.0-98.0); Mean Platelet Volume 9.6 fL (9.4-12.3); Platelet Count 342 X10*3/uL (160-400); Red Blood Count 4.03 X10*6/uL (4.20-5.50); Red Cell Distribution Width 14.1 % (11.0-16.0); White Blood Count 9.4 X10*3/uL (4.8-10.8)
[2021-11-21 07:22] LABS: Anion Gap 11 (12-20); Blood Urea Nitrogen 15 mg/dL (9-16); C Reactive Protein 1.47 mg/dL (< or = 0.50); Calcium 9.3 mg/dL (8.4-10.2); Carbon Dioxide 33 mmol/L (22-29); Chloride 101 mmol/L (96-108); Creatinine Clr Calc Pharmacy 111.9; Estimated Glomerular Filt Rate > 60; Glucose Random 173 mg/dL (60-115); Potassium 4.3 mmol/L (3.3-5.1); Sodium 141 mmol/L (135-145)
[2021-11-21 07:24] LABS: Glucose, Whole Blood 163 mg/dL (60-115)
[2021-11-21] MEDS: Insulin Lispro 100 UNIT/ML 3 ML VIAL SUBCUT ×4 (08:40→22:01)
[2021-11-21] MEDS: Benzonatate 100 MG CAPSULE PO ×3 (08:41→22:02)
[2021-11-21] MEDS: methylPREDNISolone Sod Succ 40 MG/ML VIAL IVPUSH ×2 (08:41→22:01)
[2021-11-21] MEDS: Cholecalciferol (Vitamin D3) 25 MCG TABLET 50 MCG PO (08:41)
[2021-11-21] MEDS: Heparin Sodium,Porcine 5,000 UNIT/ML VIAL 5000 UNIT SUBCUT ×2 (08:41→22:02)
[2021-11-21] MEDS: fluvoxaMINE Maleate 50 MG TABLET 100 MG PO ×2 (08:41→22:02)
[2021-11-21] MEDS: metFORMIN HCl 500 MG TABLET PO ×2 (08:41→22:02)
[2021-11-21 11:26] LABS: Glucose, Whole Blood 235 mg/dL (60-115)
--- NOTE | 2021-11-21 11:32 | HO.PM.IMPN ---
Subjective Subjective Date of Service: 11/21/21 Interval History: F/u on resp failure due to covid, feels better, cough is better, oxgyenationi s better. She feels better today Review of Systems no fever +sob, +cough no confusion Physical Exam Vital Signs: Vital Signs: Last Vital Signs Temp 97.8 F 11/21/21 07:41 Pulse 70 11/21/21 07:41 Resp 18 11/21/21 07:41 BP 114/79 11/21/21 07:41 Pulse Ox 92 11/21/21 07:41 Oxygen Flow Rate 15 11/10/21 20:59 BMI result Body Mass Index 55.6 Const: Other: Alert and oriented x 3,obesse CV RRR S1S2 lungs: Dimnished gianna Abd: NT, +BS Neuro: NF, Objective Data Active Medications Albuterol Sulfate (Albuterol Sulfate 90 Mcg 8 Gm Inhaler) 1 puff INHALE Q4H PRN PRN Reason: Wheezing Baricitinib (Baricitinib 2 Mg Tablet) 4 mg PO Q24H [facility] Stop: 11/24/21 17:01 Last Admin: 11/20/21 17:19 Dose: 4 mg Documented by: SAMUELENOAL Benzonatate (Benzonatate 100 Mg Capsule) 100 mg PO TID [facility] Last Admin: 11/21/21 08:41 Dose: 100 mg Documented by: MEGAN Dextrose (Dextrose 50 % 25 Gm/50 Ml Syringe) 25 gm IVPUSH Q30M PRN PRN Reason: Nursing Actions in Insulin Infusion Protocol Fluvoxamine Maleate (Fluvoxamine Maleate 50 Mg Tablet) 100 mg PO Q12H [facility] Last Admin: 11/21/21 08:41 Dose: 100 mg Documented by: MEGAN Guaifenesin/Codeine Phosphate (Guaifen/Codeine Sf 200/20/10ml 10 Ml Liquid) 10 ml PO Q4H PRN PRN Reason: Cough Last Admin: 11/20/21 21:33 Dose: 10 ml Documented by: TWYLA Heparin Sodium (Porcine) (Heparin Sodium,Porcine 5,000 Unit/Ml Vial) 5,000 unit SUBCUT Q12H [facility] Last Admin: 11/21/21 08:41 Dose: 5,000 unit Documented by: MEGAN Ibuprofen (Ibuprofen 600 Mg Tablet) 600 mg PO Q6H PRN PRN Reason: Headache Last Admin: 11/20/21 14:06 Dose: 600 mg Documented by: RONDA Insulin Glargine (Insulin Glargine,Hum.Rec.Anlog 100 Unit/Ml 10 Ml Vial) 10 unit SUBCUT BEDTIME [facility] Last Admin: 11/20/21 21:06 Dose: 10 unit Documented by: TWYLA Insulin Human Lispro (Insulin Lispro 100 Unit/Ml 3 Ml Vial) 0 unit SUBCUT QIDACHS [facility]; Protocol Last Admin: 11/21/21 08:40 Dose: 6 unit Documented by: MEGAN Metformin HCl (Metformin Hcl 500 Mg Tablet) 500 mg PO BID [facility] Last Admin: 11/21/21 08:41 Dose: 500 mg Documented by: MEGAN Methylprednisolone Sodium Succinate (Methylprednisolone Sod Succ 40 Mg/Ml Vial) 40 mg IVPUSH Q12H [facility] Last Admin: 11/21/21 08:41 Dose: 40 mg Documented by: MEGAN Pharmacy Consult (Consult Rx Perform Med Rec) 1 each MISCELLANE ONCE PRN PRN Reason: Consult order Vitamin D (Cholecalciferol (Vitamin D3) 25 Mcg Tablet) 50 mcg PO DAILY [facility] Last Admin: 11/21/21 08:41 Dose: 50 mcg Documented by: MEGAN Labs CBC & Chem 7: 11/21/21 06:52 11/21/21 06:52 Labs: Laboratory Results - last 24 hr 11/20/21 11/20/21 11/21/21 16:33 20:27 06:52 MCV 88.8 MCH 28.8 MCHC 32.4 RDW 14.1 Plt Count 342 MPV 9.6 Absolute Nucleated RBC 0.000 Nucleated RBC % (auto) 0.0 Anion Gap Estim Creat Clear Calc Estimated GFR POC Glucose 351 H* 306 H Random Glucose Calcium C-Reactive Protein 11/21/21 11/21/21 11/21/21 06:52 07:13 11:13 MCV MCH MCHC RDW Plt Count MPV Absolute Nucleated RBC Nucleated RBC % (auto) Anion Gap 11 L Estim Creat Clear Calc 111.9 Estimated GFR > 60 POC Glucose 163 H 235 H Random Glucose 173 H Calcium 9.3 C-Reactive Protein 1.47 H Assessment and Plan (1) Pneumonia due to 2019-nCoV: Status: Acute (2) Diabetes type 2, uncontrolled: Status: Acute (3) Obesity, morbid, BMI 50 or higher: Status: Acute Plan 51 morbidly obese with diabetes, PRISCILLA on CPAP, asthma, unvaccinated for covid admitted to ICU for rescue BIPAP from covid associated acute hypoxic respiratory failure and later transitioned to high flow with improvment. Acute hypoxic respiratory failure d/t covid 19 pneumonia Clinically doing better, decreased oxygen requirement currently on 3 L nasal cannula at rest on Baricitinb day 08/24 s/p IV dexamethasone day 10 , prednisone for few more days on Luvox--started in ICU day 10, continue for now continue Robitusssin AC + Tessalon for cough, vitamin-D obtain home O2 eval patient noted to have finger oximetry 81% on 6 L Oxymizer with ambulation heart rate up to 121 will continue out of bed to chair and ambulation with Oxymizer, encourage incentive spirometry. -Will redo it today Diabetes-- Elevated blood sugars likely due to steroids, will adjust insulin sliding scale , continue Metformin 500 bid, lantus 10 units, and diabetic diet Obesity--weight loss adivsed, since contributing to diabetes and obstructive sleep apnea. PRISCILLA--BiPAP at night. Heparin for DVT proph Quality Stroke Does the patient have a stroke diagnosis?: No VTE Prior VTE?: No VTE Risk Level:: Medical - low VTE Device Contraindication: N/A - Device Ordered VTE Drug Contraindication: N/A - Med Ordered
--- NOTE | 2021-11-21 12:01 | MHC.CM.PN ---
Patient is not yet medically cleared for dc (IV Solu Medrol);Home/resume [employer] TO[employer] VS STR pending PT Eval is the goal and CM will follow for possible need to adjust the dc plan.
[2021-11-21 16:05] LABS: Glucose, Whole Blood 390 mg/dL (60-115)
[2021-11-21 19:45] LABS: Glucose, Whole Blood 347 mg/dL (60-115)
[2021-11-21] MEDS: Insulin Glargine,Hum.rec.anlog 100 UNIT/ML 10 ML VIAL 10 UNIT SUBCUT (22:01)
[2021-11-21] MEDS: guaiFEN/Codeine SF 200/20/10ML 10 ML LIQUID PO (22:02)
[2021-11-22] VITALS (7 sets, daily range): BP systolic 121–150; BP diastolic 74–88; PULSE 59–102; RESP 16–35; TEMP 36.6–37.1; O2SAT 87–114; BMI 66.7
[2021-11-22 07:42] LABS: Glucose, Whole Blood 260 mg/dL (60-115)
[2021-11-22] MEDS: fluvoxaMINE Maleate 50 MG TABLET 100 MG PO ×2 (07:49→21:43)
[2021-11-22] MEDS: Cholecalciferol (Vitamin D3) 25 MCG TABLET 50 MCG PO (07:49)
[2021-11-22] MEDS: guaiFEN/Codeine SF 200/20/10ML 10 ML LIQUID PO ×2 (07:49→21:43)
[2021-11-22] MEDS: Heparin Sodium,Porcine 5,000 UNIT/ML VIAL 5000 UNIT SUBCUT ×2 (07:49→21:43)
[2021-11-22] MEDS: methylPREDNISolone Sod Succ 40 MG/ML VIAL IVPUSH (07:49)
[2021-11-22] MEDS: metFORMIN HCl 500 MG TABLET PO ×2 (07:49→21:43)
[2021-11-22] MEDS: Benzonatate 100 MG CAPSULE PO ×3 (07:49→21:43)
[2021-11-22] MEDS: Insulin Lispro 100 UNIT/ML 3 ML VIAL SUBCUT ×4 (07:49→21:44)
[2021-11-22] MEDS: Ibuprofen 600 MG TABLET PO ×2 (07:51→14:18)
--- NOTE | 2021-11-22 09:11 | HO.PM.IMPN ---
Subjective Subjective Date of Service: 11/22/21 Interval History: F/u on resp failure due to covid, feels better, still requiring oxygen and experiences nose bleed in the mornings Review of Systems no fever +sob, +cough no confusion nose bleed Constitutional General: AO X 3, no acute distress, obese Resp: CTA bilateral CVS: S1,S2,RRR GI: +BS, NT, no distention Skin: No rash Neuro: motor grossly intact Psych: appropriate affect Physical Exam Vital Signs: Vital Signs: Last Vital Signs Temp 97.8 F 11/22/21 07:58 Pulse 73 11/22/21 07:58 Resp 20 11/22/21 07:58 BP 127/79 11/22/21 07:58 Pulse Ox 90 L 11/22/21 07:58 Oxygen Flow Rate 15 11/10/21 20:59 BMI result Body Mass Index 66.7 Const: Other: Alert and oriented x 3,obesse CV RRR S1S2 lungs: Dimnished gianna Abd: NT, +BS Neuro: NF, Objective Data Active Medications Albuterol Sulfate (Albuterol Sulfate 90 Mcg 8 Gm Inhaler) 1 puff INHALE Q4H PRN PRN Reason: Wheezing Baricitinib (Baricitinib 2 Mg Tablet) 4 mg PO Q24H [facility] Stop: 11/24/21 17:01 Last Admin: 11/21/21 17:13 Dose: 4 mg Documented by: DOBROB Benzonatate (Benzonatate 100 Mg Capsule) 100 mg PO TID [facility] Last Admin: 11/22/21 07:49 Dose: 100 mg Documented by: ZEFERINOEMA Dextrose (Dextrose 50 % 25 Gm/50 Ml Syringe) 25 gm IVPUSH Q30M PRN PRN Reason: Nursing Actions in Insulin Infusion Protocol Fluvoxamine Maleate (Fluvoxamine Maleate 50 Mg Tablet) 100 mg PO Q12H [facility] Last Admin: 11/22/21 07:49 Dose: 100 mg Documented by: ZEFERINOEMA Guaifenesin/Codeine Phosphate (Guaifen/Codeine Sf 200/20/10ml 10 Ml Liquid) 10 ml PO Q4H PRN PRN Reason: Cough Last Admin: 11/22/21 07:49 Dose: 10 ml Documented by: ZEFERINOEMA Heparin Sodium (Porcine) (Heparin Sodium,Porcine 5,000 Unit/Ml Vial) 5,000 unit SUBCUT Q12H [facility] Last Admin: 11/22/21 07:49 Dose: 5,000 unit Documented by: SYL Ibuprofen (Ibuprofen 600 Mg Tablet) 600 mg PO Q6H PRN PRN Reason: Headache Last Admin: 11/22/21 07:51 Dose: 600 mg Documented by: SYL Insulin Glargine (Insulin Glargine,Hum.Rec.Anlog 100 Unit/Ml 10 Ml Vial) 10 unit SUBCUT BEDTIME [facility] Last Admin: 11/21/21 22:01 Dose: 10 unit Documented by: ANTOIC Insulin Human Lispro (Insulin Lispro 100 Unit/Ml 3 Ml Vial) 0 unit SUBCUT QIDACHS [facility]; Protocol Last Admin: 11/22/21 07:49 Dose: 10 unit Documented by: SYL Metformin HCl (Metformin Hcl 500 Mg Tablet) 500 mg PO BID [facility] Last Admin: 11/22/21 07:49 Dose: 500 mg Documented by: SYL Methylprednisolone Sodium Succinate (Methylprednisolone Sod Succ 40 Mg/Ml Vial) 40 mg IVPUSH Q12H [facility] Last Admin: 11/22/21 07:49 Dose: 40 mg Documented by: SYL Pharmacy Consult (Consult Rx Perform Med Rec) 1 each MISCELLANE ONCE PRN PRN Reason: Consult order Vitamin D (Cholecalciferol (Vitamin D3) 25 Mcg Tablet) 50 mcg PO DAILY [facility] Last Admin: 11/22/21 07:49 Dose: 50 mcg Documented by: SYL Labs CBC & Chem 7: 11/21/21 06:52 11/21/21 06:52 Labs: Laboratory Results - last 24 hr 11/21/21 11/21/21 11/21/21 11:13 15:56 19:34 POC Glucose 235 H 390 H* 347 H 11/22/21 07:23 POC Glucose 260 H Assessment and Plan (1) Pneumonia due to 2019-nCoV: Status: Acute (2) Diabetes type 2, uncontrolled: Status: Acute (3) Obesity, morbid, BMI 50 or higher: Status: Acute Plan 51 morbidly obese with diabetes, PRISCILLA on CPAP, asthma, unvaccinated for covid admitted to ICU for rescue BIPAP from covid associated acute hypoxic respiratory failure and later transitioned to high flow with improvment. Acute hypoxic respiratory failure d/t covid 19 pneumonia Clinically doing better, decreased oxygen requirement currently on 3 L nasal cannula at rest on Baricitinb day 08/24 s/p IV dexamethasone day 10 , prednisone for few more days on Luvox--started in ICU day 10, continue for now continue Robitusssin AC + Tessalon for cough, vitamin-D obtain home O2 eval patient noted to have finger oximetry 81% on 6 L Oxymizer with ambulation heart rate up to 121 will continue out of bed to chair and ambulation with Oxymizer, encourage incentive spirometry. -Reassess for home O2 eval today Diabetes-- Elevated blood sugars likely due to steroids, will adjust insulin sliding scale , continue Metformin 500 bid, lantus 10 units, and diabetic diet Obesity--weight loss adivsed, since contributing to diabetes and obstructive sleep apnea. PRISCILLA--BiPAP at night. Heparin for DVT proph Quality Stroke Does the patient have a stroke diagnosis?: No VTE Prior VTE?: No VTE Risk Level:: Medical - low VTE Device Contraindication: N/A - Device Ordered VTE Drug Contraindication: N/A - Med Ordered
[2021-11-22 11:33] LABS: Glucose, Whole Blood 276 mg/dL (60-115)
[2021-11-22 16:32] LABS: Glucose, Whole Blood 385 mg/dL (60-115)
--- NOTE | 2021-11-22 19:33 | PC.NURSE ---
PT POC blood glucose at 1630 was 385, Dr. Morrell made aware and verbal order to give 18 units of humalog. 18 units humalog given. Will continue to monitor blood glucoses.
[2021-11-22 20:42] LABS: Glucose, Whole Blood 323 mg/dL (60-115)
[2021-11-22] MEDS: Insulin Glargine,Hum.rec.anlog 100 UNIT/ML 10 ML VIAL 15 UNIT SUBCUT (21:44)
[2021-11-23 00:06] VITALS: BP 126/70; PULSE 74; RESP 20; TEMP 36.6; O2SAT 100
[2021-11-23] MEDS: Ibuprofen 600 MG TABLET PO ×2 (01:24→08:04)
[2021-11-23 04:00] VITALS: BP 129/64; PULSE 53; RESP 20; TEMP 36.6; O2SAT 100
[2021-11-23 07:43] VITALS: BP 117/79; PULSE 63; RESP 18; TEMP 36.6; O2SAT 93
[2021-11-23 07:49] LABS: Glucose, Whole Blood 190 mg/dL (60-115)
[2021-11-23] MEDS: Insulin Lispro 100 UNIT/ML 3 ML VIAL SUBCUT (08:03)
[2021-11-23] MEDS: guaiFEN/Codeine SF 200/20/10ML 10 ML LIQUID PO (08:03)
[2021-11-23] MEDS: Heparin Sodium,Porcine 5,000 UNIT/ML VIAL 5000 UNIT SUBCUT (08:04)
[2021-11-23] MEDS: metFORMIN HCl 500 MG TABLET PO (08:04)
[2021-11-23] MEDS: Benzonatate 100 MG CAPSULE PO (08:04)
[2021-11-23] MEDS: Cholecalciferol (Vitamin D3) 25 MCG TABLET 50 MCG PO (08:04)
[2021-11-23] MEDS: fluvoxaMINE Maleate 50 MG TABLET 100 MG PO (08:04)
[2021-11-23] MEDS: predniSONE 10 MG TABLET PO (08:04)
[2021-11-23 08:12] VITALS: O2SAT 95
--- NOTE | 2021-11-23 09:22 | PM.DS ---
DS: Providers Provider Date of Service: 11/23/21 Date of admission: 11/10/21 20:59 Primary care physician: Unknown Physician Consults: 11/10/21 21:07 Consult to Infectious Diseases Stat Consulting Provider: Macrina Villa Reason for consultation: Covid + w/asthma, DM and BMI 52, ? remdesivir & baricitinib day 10 symptoms DS: Diagnosis Discharge Diagnosis (1) Pneumonia due to 2019-nCoV: Status: Acute (2) Diabetes type 2, uncontrolled: Status: Acute (3) Obesity, morbid, BMI 50 or higher: Status: Acute DS: Summary Hospital Course Hospital Course: 51 morbidly obese with diabetes,? PRISCILLA on CPAP, asthma, unvaccinated for covid and a admitted to ICU for rescue BIPAP from covid associated acute hypoxic respiratory failure. Covid pneumonia with acute hypoxic respiratory failure and require rescue BipAP in the ICU on admission and eventually was trsitioned to High flow oxygen which she required long period of time and was eventually weaned to oxygen by nasal canula and now doing well on with with 95 % on room air yet, requires oxgyen with activity and therefore will be going home with Oxygen with activity. Her medical management mangement consisted of Oxygen as stated, she completed 10 days of Dexamethasone and then IV solumedrol and later changed to oral Prednisone and at this point does not need steroid any more. Shehas been treated with Baricitinib, robitussin and Tessalon, vit D. ICU put her on Luvox , there is no CDC validate use for covid and therefore will discontinue at this time. Diabetes--She takes metformin at home and was on Lantus here due high blood sugars from steroid, offered to continue Lantus but doesn't want to take shots and therefore I am adding Glipizide XL 2.5 and maybe further adjusted by PCP Obesity--weight loss adivsed, since contributing to diabetes and obstructive sleep apnea. PRISCILLA--To resume home CPAP Time Spent with Patient Time attestation: Total time spent providing and/or coordinating discharge services: Discharge coordination time: Greater than 30 minutes Quality: Stroke Does the patient have a stroke diagnosis?: No Physical Exam Vital Signs: Vital Signs: Last Vital Signs Temp 97.9 F 11/23/21 07:43 Pulse 63 11/23/21 07:43 Resp 18 11/23/21 07:43 BP 117/79 11/23/21 07:43 Pulse Ox 95 11/23/21 08:12 Oxygen Flow Rate 15 11/10/21 20:59 BMI result Body Mass Index 66.7 DS: Data Data Completed and Pending Labs on day of discharge: Laboratory Results - last 24 hr 11/22/21 11/22/21 11/22/21 11:15 16:21 20:33 POC Glucose 276 H 385 H* 323 H 11/23/21 07:46 POC Glucose 190 H Discharge Plan Discharge Anticipated Discharge Date/Time: 11/23/21 09:17 Patient Disposition: Home, Self-Care Discharge Diagnosis: Covid 19 pneumonia Referrals: Physician,Unknown J [Primary Care Provider] - 1 Week Discharge Medications: New glipizide 2.5 mg tablet extended release 24 hr 2.5 mg PO DAILY Qty: 30 0RF Continued ibuprofen 800 mg tablet 1 tab PO TID PRN (Reason: Pain) 0RF metformin 1,000 mg tablet 1 tab PO BID 0RF albuterol sulfate [Ventolin HFA] 90 mcg/actuation HFA aerosol inhaler 1 inh inhalation Q4H PRN (Reason: Wheezing) 0RF cholecalciferol (vitamin D3) 50 mcg (2,000 unit) capsule 1 cap PO DAILY 0RF Discharge Orders: Discharge Order (Routine); Ordered 11/23/21 Ordered By: Stephan Morrell Diet: advance to usual diet and diabetic diet Activity on Discharge: As tolerated Stand Alone Forms: Patient Portal Discharge page Care Plan Goals: Full recovery from covid pneumonia and respiratory failure Health Concerns: covid pneumonia with respiratory failure and need to use oxygen at home, obesity, diabetes Plan of Treatment: Use oxygen as directed, follow up with your Doctor in a week, resume Metformin for diabetes take Glipize for diabetes as well.. Check your suguars before meals and at bedtime Assessment: as above
--- NOTE | 2021-11-23 09:37 | MHC.CM.PN ---
PT CLEARED TO DC HOME TODAY WITH NO SERVICES FAMILY TO TRANSPORT
== END 2021-11-23 11:52 | disposition home or self-care (01) | DRG 177 ==
LOC: HO.ED 21:06 → HO.EDOVER 21:13 → HO.ICU 22:41 → HO.IMC 11-11 18:39
PROVIDERS: Emergency Medicine; Hospitalist; Admitting Provider Physician Assistant; Emergency Provider Emergency Medicine; Visit Provider Internal Medicine
DX: U07.1 COVID-19 (principal); J96.01 Acute respiratory failure with hypoxia; J12.82 Pneumonia due to coronavirus disease 2019; Z68.44 Body mass index [BMI] 60.0-69.9, adult; E11.65 Type 2 diabetes mellitus with hyperglycemia; E66.01 Morbid (severe) obesity due to excess calories; G47.33 Obstructive sleep apnea (adult) (pediatric); Z87.891 Personal history of nicotine dependence; Z79.1 Long term (current) use of non-steroidal anti-inflammatories (NSAID); Z79.84 Long term (current) use of oral hypoglycemic drugs; Z79.899 Other long term (current) drug therapy
CPT/HCPCS: 36415; 71045; 71275; 80048; 80076; 80202; 82550; 82728; 82803; 82947; 83605; 83615; 83735; 83880; 84100; 84145; 84484; 85007; 85025; 85027; 85379; 85610; 86140; 87040; 87070; 87205; 93005; 94640; 94644; 94660; 96365; 96366; 96367; 96375; 99285; 99291; C1758; J0456; J0696; J1100; J2270; J2920; J3370; Q9967